=== PATIENT | female | born 1985 | race Caucasian/White ===

== ENCOUNTER 2016-11-11 23:00 | Emergency (ER) | payer OTHER ==
[2016-11-11] MEDS ORDERED: MORPHINE 10 MG/ML VIAL ONE ×2 (23:18→23:32)
[2016-11-11] MEDS ORDERED: ONDANSETRON 4 MG/2 ML VIAL IVP STA (23:18)
[2016-11-11] MEDS: MORPHINE 10 MG/ML VIAL IVP STA (23:33)
[2016-11-11] MEDS: SODIUM CHLORIDE 0.9% 1,000 ML IV ONE (23:34)
[2016-11-11 23:42] LABS: BASOPHILS # (AUTO) 0.1 10^3/uL (0.0-0.1); BASOPHILS % (AUTO) 0.6 %; EOSINOPHILS # (AUTO) 1.1 10^3/uL (0.0-0.7); EOSINOPHILS % (AUTO) 9.2 %; HCT - HEMATOCRIT 38.1 % (37.0-47.0); HGB - HEMOGLOBIN 12.7 g/dL (12.0-16.0); LYMPHOCYTES # (AUTO) 3.5 10^3/uL (1.5-3.5); LYMPHOCYTES % (AUTO) 29.6 %; MEAN CORPUSCULAR HEMOGLOBIN 27.3 pg (27.0-31.0); MEAN CORPUSCULAR HGB CONC 33.5 g/dL (32.0-36.0); MEAN CORPUSCULAR VOLUME 81.7 fL (81.0-99.0); MEAN PLATELET VOLUME 7.8 fL (7.9-10.8); MONOCYTES # (AUTO) 0.5 10^3/uL (0.0-1.0); MONOCYTES % (AUTO) 4.1 %; NEUTROPHILS # (AUTO) 6.6 10^3/uL (1.5-6.6); NEUTROPHILS % (AUTO) 56.5 %; RED BLOOD COUNT 4.66 10^6/uL (4.20-5.40); UNCORRECTED WHITE BLOOD COUNT 11.7 x10^3/uL; WHITE BLOOD COUNT 11.7 x10^3/uL (4.8-10.8)
[2016-11-11 23:55] LABS: BILIRUBIN,TOTAL 0.4 mg/dL (0.2-1.0); CALCIUM 9.1 mg/dL (8.5-10.3); CREATININE 0.7 mg/dL (0.4-1.0); POTASSIUM 3.4 mmol/L (3.5-5.0); TOTAL PROTEIN 6.5 g/dL (6.7-8.2)
[2016-11-12] MEDS ORDERED: IOPAMIDOL-300 100 ML VIAL ONE (00:08)
[2016-11-12] MEDS: IOPAMIDOL-300 100 ML VIAL IVP ONE (00:28)
[2016-11-12 00:58] LABS: BILIRUBIN,URINE NEGATIVE (NEGATIVE); UA CHARGE (STRIP ONLY) YES; UR CULTURE IF IND NOT INDICATED
[2016-11-12 01:01] LABS: HCG UR QUAL NEGATIVE
--- NOTE | 2016-11-12 01:05 | CT Preliminary Report ---
Exam: CT Abdomen/Pelvis W/ IMPRESSION: 1. Appendix appears normal. 2. Wall thickening and inflammatory change in the cecum and proximal ascending colon presumably repre senting a focal infectious or inflammatory process. Malignancy unlikely but not entirely excluded. 3. Hepatosplenomegaly with fatty liver. [facility] SITE ID: [id number]
--- NOTE | 2016-11-12 01:08 | CT Report ---
EXAM: CT ABDOMEN AND PELVIS EXAM DATE: 11/12/2016 12:33 AM. CLINICAL HISTORY: Right lower quadrant pain. COMPARISONS: CT report, 06/03/2009. TECHNIQUE: Routine helical CT imaging was performed through the abdomen and pelvis. IV contrast: Vanda onic. Enteric contrast: No. Reconstructions: Coronal and sagittal. In accordance with CT protocol optimization, one or more of the following dose reduction techniques w ere utilized for this exam: automated exposure control, adjustment of mA and/or KV based on patient s ize, or use of iterative reconstructive technique. FINDINGS: Lung Bases: Mild bibasilar atelectasis. Liver: Fatty infiltration. Gallbladder/Bile Ducts: Unremarkable. Spleen: Enlarged at 14.6 cm. Pancreas: Normal. Adrenal Glands: Normal. Kidneys: Normal. No masses or hydronephrosis. Peritoneal Cavity/Bowel: There may be some colonic diverticula but no diverticulitis is seen. Wall th ickening and inflammatory change in the cecum and proximal ascending colon. No bowel obstruction. No free air or free fluid. Normal-sized mesenteric lymph nodes. Appendix appears normal. Pelvic Organs: Normal. The bladder and visualized pelvic organs are within normal limits. Vasculature: No aneurysms or other significant abnormality. Bones: No significant abnormality. Other: None. IMPRESSION: 1. Appendix appears normal. 2. Wall thickening and inflammatory change in the cecum and proximal ascending colon presumably repre senting a focal infectious or inflammatory process. Malignancy unlikely but not entirely excluded. 3. Hepatosplenomegaly with fatty liver. [facility] Referring Provider Line: [phone] SITE ID: [id number]
--- NOTE | 2016-11-12 01:22 | ED Physician Documentation ---
PD HPI ABD PAIN - Stated complaint Stated Complaint: ABD PX/NAUSEA - Chief complaint Chief Complaint: Abd Pain - History obtained from History obtained from: Patient - History of Present Illness Timing - onset: How many days ago (2) Timing - details: Gradual onset, Still present Quality: Cramping, Aching Location: RLQ Worsened by: Eating, Moving, Position, Palpation Associated symptoms: Constipation. No: Fever, Nausea, Vomiting, Hematemesis, Diarrhea Similar symptoms before: Has not had sx before Recently seen: Not recently seen - Additional information Additional information: Patient is a 31 year old female with a history of depression and anxiety who is presenting to the emergency department for rlq pain. Patient states that the pain has been going on for about a day and is just getting progressively worse. Patient states that it is only in her right lower quadrant. Patient denies nausea, vomiting, diarrhea, fever, chills, dysuria, vaginal bleeding or vaginal discharge. Review of Systems Constitutional: denies: Fever, Chills Eyes: denies: Decreased vision, Photophobia Ears: denies: Ear pain, Drainage/discharge Nose: denies: Congestion Throat: denies: Oral lesions / sores, Sore throat Cardiac: denies: Chest pain / pressure, Palpitations Respiratory: denies: Cough, Wheezing GI: reports: Abdominal Pain, Constipation. denies: Nausea, Vomiting, Diarrhea : denies: Dysuria, Frequency, Discharge, Vaginal bleeding Skin: denies: Rash, Lesions Musculoskeletal: denies: Neck pain, Back pain, Extremity pain Neurologic: denies: Generalized weakness, Focal weakness, Numbness Psychiatric: reports: Depressed, Anxiety Immunocompromised: denies: Immunocompromised PD PAST MEDICAL HISTORY - Past Medical History Past Medical History: Yes GI: GERD - Past Surgical History Past Surgical History: No - Present Medications Home Medications: Ambulatory Orders Medication Instructions Recorded Confirmed Cetirizine [ZyrTEC] 1 tab PO DAILY 11/11/16 11/11/16 Duloxetine HCl [Cymbalta] 1 tab PO DAILY 11/11/16 11/11/16 Ethinyl Estradiol/Drospirenone 1 tab PO DAILY 11/11/16 11/11/16 [Ocella 3 mg-0.03 mg Tablet] Omeprazole 1 tab PO DAILY 11/11/16 11/11/16 Tizanidine HCl [Zanaflex] 1 tab PO PRN PRN 11/11/16 11/11/16 Trazodone HCl 1 tab PO DAILY 11/11/16 11/11/16 Ciprofloxacin HCl [Cipro] 500 mg PO BID #14 tablet 11/12/16 Metronidazole [Flagyl] 500 mg PO TID #21 tablet 11/12/16 - Allergies Allergies/Adverse Reactions: Allergies Allergy/AdvReac Type Severity Reaction Status Date / Time acetaminophen [From Vicodin] Allergy Itching Verified 11/11/16 23:11 hydrocodone [From Vicodin] Allergy Itching Verified 11/11/16 23:11 venlafaxine [From Effexor] Allergy Rash Verified 11/11/16 23:11 - Social History Does the pt smoke?: No Smoking Status: Never smoker PD ED PE NORMAL - Vitals Vital signs reviewed: Yes - General General: Alert and oriented X 3, No acute distress - HEENT HEENT: Atraumatic, PERRL, Pharynx benign - Neck Neck: Supple, no meningeal sign, No JVD - Cardiac Cardiac: RRR, No murmur - Respiratory Respiratory: No respiratory distress, Clear bilaterally - Abdomen Abdomen: Non distended - Derm Derm: Normal color, Warm and dry, No rash - Extremities Extremities: No deformity, No calf tenderness / cord - Neuro Neuro: Alert and oriented X 3, No motor deficit, No sensory deficit, Normal speech - Psych Psych: Normal mood, Normal affect PD ED PE EXPANDED - HEENT HEENT: Dry mucous membranes - Abdomen Abdomen: Tender to palpation, RLQ Results - Vitals Vitals: Vital Signs - 24 hr 11/11/16 11/12/16 23:09 00:54 Temperature 36 C L Heart Rate 119 H 102 H Respiratory 20 18 Rate Blood Pressure 178/90 H 159/72 H O2 Saturation 98 99 Oxygen O2 Source Room air - Labs Labs: Laboratory Tests 11/11/16 11/11/16 11/12/16 23:25 23:25 00:52 WBC 11.7 H RBC 4.66 Hgb 12.7 Hct 38.1 MCV 81.7 MCH 27.3 MCHC 33.5 RDW 14.0 Plt Count 335 MPV 7.8 L Neut # 6.6 Lymph # 3.5 [place] # 0.5 Eos # 1.1 H Baso # 0.1 Absolute Nucleated RBC 0.00 Nucleated RBC % 0.0 Sodium 137 Potassium 3.4 L Chloride 104 Carbon Dioxide 23 Anion Gap 10.0 BUN 11 Creatinine 0.7 Estimated GFR (MDRD) 96 Glucose 129 H Calcium 9.1 Total Bilirubin 0.4 AST 17 ALT 17 Alkaline Phosphatase 70 Total Protein 6.5 L Albumin 3.3 Globulin 3.2 Albumin/Globulin Ratio 1.0 Lipase 22 Urine Color YELLOW Urine Clarity CLEAR Urine pH 6.0 Ur Specific [place] <=1.005 Urine Protein NEGATIVE Urine Glucose (UA) NEGATIVE Urine Ketones NEGATIVE Urine Occult Blood NEGATIVE Urine Nitrite NEGATIVE Urine Bilirubin NEGATIVE Urine Urobilinogen 0.2 (NORMAL) Ur Leukocyte Esterase NEGATIVE Ur Microscopic Review NOT INDICATED Urine Culture Comments NOT INDICATED Urine HCG, Qual NEGATIVE - Rads (name of study) ct abdomen and pelvis Radiology: Final report received (normal appendix, colitis), See rad report PD MEDICAL DECISION MAKING - ED course Complexity details: reviewed old records, reviewed results, re-evaluated patient , considered differential, d/w patient, d/w family ED course: Patient was seen and examined at bedside. IV access was gained and labs were drawn. patient was treated with IV fluids and morphine for pain. imaging was ordered. when patient's labs came back she was sent for imaging. Patient was found to make mild colitis and a large stool burden. Patient's symptoms were less likely to be infectious in nature, but patient was given detailed discharge and follow up instructions, including surgical follow up. Patient required no further work up at this time and was stable for discharge with outpatient follow up. Departure - Departure Disposition: 01 Home, Self Care Clinical Impression: Colitis Condition: Good Instructions: ED Gastroenteritis Non Infec Follow-Up: Emmanuel Christiansen MD [Provider Admit Priv/Credential] - Within 1 week Prescriptions: Ciprofloxacin HCl [Cipro] 500 mg PO BID #14 tablet Metronidazole [Flagyl] 500 mg PO TID #21 tablet Comments: Your diagnostics today revealed some colitis, which is just inflammation of your lia. It could be infections in nature but less likely. If you develop fevers, and chills, you can start antibiotics but should not be necessary. You were also found to be constipated with a large stool burden. It could be a side effect of your medication. You will need to increase the amount of fluid intake, and take a daily fiber supplement. You should follow up with Dr. Christiansen for an eventual colonoscopy to rule out malignancy if symptoms persist or become frequent. You may return to the emergency department at any time for new, worsening or uncontrollable symptoms.
[2016-11-12 01:40] VITALS: BP 114/60
== END 2016-11-12 01:40 | disposition home or self-care (01) ==
LOC: ED 23:00
DX: K52.9 Noninfective gastroenteritis and colitis, unspecified (principal)
CPT/HCPCS: 36415; 74177; 80053; 81001; 81003; 81025; 83690; 85025; 87086; 96361; 96374; 99283; 99284

== ENCOUNTER 2016-11-20 11:50 | Outpatient (CLI) | payer OTHER | END 2016-11-20 11:51 | disposition short-term general hospital (02) | LOC: EMS 11:50 | PROVIDERS: ATTEND Surgery | DX: M79.602 Pain in left arm (principal); M79.89 Other specified soft tissue disorders ==

== ENCOUNTER 2017-01-17 15:52 | Emergency (ER) | payer OTHER ==
--- NOTE | 2017-01-17 16:22 | ED Physician Documentation ---
History of Present Illness - Stated complaint Stated Complaint: R HAND PX - Chief complaint Chief Complaint: Ext Problem - History obtained from History obtained from: Patient - History of Present Illness Timing: How many weeks ago (1) - Additonal information Additional information: 31-year-old female with an ASD has developed another extremity clot. She has had a prior clot to the left upper extremity and was placed on Pradaxa. This eventually resolved and while she was on Pradaxa she developed this second clot this time to the right hand. She awoke on Wednesday morning with symptoms she was evaluated and treated at [facility] in [place] he was discharged from the hospital on Wednesday. Previously she had been given Dilaudid for pain control and this is very painful. She was not given pain medications when she was discharged from the hospital and she has been unable to sleep. She did call her vascular surgeon and the recommended she come to the emergency department as they are not able to phone in a prescription for pain medication. Review of Systems Constitutional: denies: Fever, Chills, Myalgias Eyes: denies: Decreased vision Ears: denies: Ear pain Nose: denies: Congestion Throat: denies: Sore throat Cardiac: denies: Chest pain / pressure, Palpitations Respiratory: denies: Dyspnea, Cough GI: denies: Abdominal Pain, Nausea, Vomiting, Constipation, Diarrhea : denies: Dysuria, Frequency Musculoskeletal: reports: Extremity pain Neurologic: denies: Generalized weakness, Focal weakness, Numbness PD PAST MEDICAL HISTORY - Past Medical History Past Medical History: Yes GI: GERD Psych: Depression Other Past Medical History: Blood clots to hands - Past Surgical History Past Surgical History: No - Present Medications Home Medications: Ambulatory Orders Medication Instructions Recorded Confirmed Cetirizine [ZyrTEC] 1 tab PO DAILY 11/11/16 01/17/17 Duloxetine HCl [Cymbalta] 1 tab PO DAILY 11/11/16 11/11/16 Ethinyl Estradiol/Drospirenone 1 tab PO DAILY 11/11/16 11/11/16 [Ocella 3 mg-0.03 mg Tablet] Omeprazole 1 tab PO DAILY 11/11/16 01/17/17 Trazodone HCl 1 tab PO DAILY 11/11/16 11/11/16 Hydromorphone HCl [Dilaudid] 4 - 8 mg PO Q4HR PRN #20 tablet 01/17/17 - Allergies Allergies/Adverse Reactions: Allergies Allergy/AdvReac Type Severity Reaction Status Date / Time acetaminophen [From Vicodin] Allergy Itching Verified 01/17/17 15:58 hydrocodone [From Vicodin] Allergy Itching Verified 01/17/17 15:58 venlafaxine [From Effexor] Allergy Rash Verified 01/17/17 15:58 - Social History Does the pt smoke?: No Smoking Status: Never smoker Does the pt drink ETOH?: No Does the pt have substance abuse?: No Substance Use and Type: Marijuana - Immunizations Immunizations are current?: Yes - POLST Patient has POLST: No PD ED PE NORMAL - Vitals Vital signs reviewed: Yes (Tachycardia and hypertension) - General General: No acute distress, Well developed/nourished - HEENT HEENT: Atraumatic, PERRL, EOMI - Respiratory Respiratory: No respiratory distress - Derm Derm: Normal color, Warm and dry, No rash - Extremities Extremities: No deformity, Other (There is ecchymosis to the fingertips on the right hand to the thumb index middle and fourth fingers distally there are skin changes consistent with ischemic changes resulting in dryness to the fingertips. ) - Neuro Neuro: No motor deficit, No sensory deficit Eye Opening: Spontaneous Motor: Obeys Commands Verbal: Oriented GCS Score: 15 - Psych Psych: Normal mood, Normal affect Results - Vitals Vitals: Vital Signs - 24 hr 01/17/17 15:53 Temperature 36.7 C Heart Rate 118 H Respiratory 18 Rate Blood Pressure 133/78 H O2 Saturation 100 Oxygen O2 Source Room air PD MEDICAL DECISION MAKING - ED course Complexity details: considered differential, d/w patient ED course: 31-year-old female with arterial clot to the right hand with continued pain associated with this episode. She does not have access to pain medication we will provide some pain medication for her for the next several days. Departure - Departure Disposition: 01 Home, Self Care Clinical Impression: Ischemia of digits of hand Condition: Stable Instructions: Ischemia Critical Limb Follow-Up: Your, doctor [Other] Prescriptions: Hydromorphone HCl [Dilaudid] 4 - 8 mg PO Q4HR PRN #20 tablet PRN Reason: Pain
[2017-01-17 16:41] VITALS: BP 130/74
== END 2017-01-17 16:37 | disposition home or self-care (01) ==
LOC: ED 15:52
DX: I99.8 Other disorder of circulatory system (principal); Z86.718 Personal history of other venous thrombosis and embolism; Z79.01 Long term (current) use of anticoagulants
CPT/HCPCS: 99283

== ENCOUNTER 2017-01-28 16:52 | Inpatient (IN) | payer OTHER, MEDICAID ==
[2017-01-28 17:37] LABS: RAPID STREP SCREEN REAGENT QC YELLOW (YELLOW)
[2017-01-28] MEDS ORDERED: SODIUM CHLORIDE 0.9% 1,000 ML IV ONE ×3 (18:03→20:18)
[2017-01-28 18:18] LABS: BASOPHILS # (AUTO) 0.1 10^3/uL (0.0-0.1); BASOPHILS % (AUTO) 1.2 %; EOSINOPHILS # (AUTO) 0.4 10^3/uL (0.0-0.7); EOSINOPHILS % (AUTO) 4.4 %; HCT - HEMATOCRIT 39.2 % (37.0-47.0); HGB - HEMOGLOBIN 12.9 g/dL (12.0-16.0); LYMPHOCYTES # (AUTO) 2.4 10^3/uL (1.5-3.5); LYMPHOCYTES % (AUTO) 26.1 %; MEAN CORPUSCULAR HEMOGLOBIN 26.4 pg (27.0-31.0); MEAN CORPUSCULAR HGB CONC 32.9 g/dL (32.0-36.0); MEAN CORPUSCULAR VOLUME 80.4 fL (81.0-99.0); MEAN PLATELET VOLUME 7.4 fL (7.9-10.8); MONOCYTES # (AUTO) 0.6 10^3/uL (0.0-1.0); MONOCYTES % (AUTO) 6.5 %; NEUTROPHILS # (AUTO) 5.7 10^3/uL (1.5-6.6); NEUTROPHILS % (AUTO) 61.8 %; RED BLOOD COUNT 4.88 10^6/uL (4.20-5.40); RED CELL DISTRIBUTION WIDTH 14.3 % (12.0-15.0); UNCORRECTED WHITE BLOOD COUNT 9.3 x10^3/uL; WHITE BLOOD COUNT 9.3 x10^3/uL (4.8-10.8)
[2017-01-28 18:22] LABS: INR 1.1 (0.8-1.2); PT - PROTHROMBIN TIME 12.1 secs (9.9-12.6)
[2017-01-28 18:30] LABS: PARTIAL THROMBOPLASTIN TIME 28.8 secs (24.9-33.3)
[2017-01-28 18:37] LABS: BILIRUBIN,TOTAL 0.8 mg/dL (0.2-1.0); CALCIUM 9.3 mg/dL (8.5-10.3); CREATININE 0.5 mg/dL (0.4-1.0); POTASSIUM 3.8 mmol/L (3.5-5.0); TOTAL PROTEIN 7.5 g/dL (6.7-8.2)
--- NOTE | 2017-01-28 19:00 | ED Physician Documentation ---
History of Present Illness - Stated complaint Stated Complaint: RASH - Chief complaint Chief Complaint: Wound - Additonal information Additional information: hx from pt 31 female presents to ER CC fairly abrupt onset myalgias fatiigue and rash to extremities no sore throat or oral lesions no documented fever no RUFFIN or neck stiffness no travel out of [place] state no tick bites no new meds - most recent is pradax and that is X several weeks pt states she was admitted to [facility] [place] several weeks ago for blood clots in her hands due to a hole in her heart and had an angiogram and was started on pradaxa I obtained records from [facility] and records state she is an IVDA and has been crushing dilaudid pills and injecting them for approx 2 months and presented to the there with right hand pain and was found to have emboli/ischmeia but not requiring intervention (hx L hand thrombus as well), angio howed digit ischemia, she had a TTE 01/12 concern for endocarditis and no mass or vegetation found, by hx has patent foramen ovale, she was dced to detox, surely blood cx were done but no results in paperwork from [facility] Review of Systems Constitutional: reports: Myalgias. denies: Fever Cardiac: denies: Chest pain / pressure Respiratory: denies: Dyspnea, Cough GI: denies: Abdominal Pain Skin: reports: Rash Musculoskeletal: denies: Neck pain Neurologic: denies: Headache Endocrine: denies: Easy bruising / bleeding Immunocompromised: denies: Immunocompromised PD PAST MEDICAL HISTORY - Past Medical History Past Medical History: Yes Cardiovascular: Other GI: GERD Psych: Depression Other Past Medical History: Bilat upper extremity thrombosis - Past Surgical History Past Surgical History: No Cardiovascular: Other - Present Medications Home Medications: Ambulatory Orders Medication Instructions Recorded Confirmed Cetirizine [ZyrTEC] 1 tab PO DAILY 11/11/16 01/28/17 Duloxetine HCl [Cymbalta] 1 tab PO DAILY 11/11/16 01/28/17 Ethinyl Estradiol/Drospirenone 1 tab PO DAILY 11/11/16 01/28/17 [Ocella 3 mg-0.03 mg Tablet] Omeprazole 1 tab PO DAILY 11/11/16 01/28/17 Trazodone HCl 1 tab PO DAILY 11/11/16 01/28/17 Dabigatran Etexilate Mesylate 150 mg PO BID 01/28/17 01/28/17 [Pradaxa] - Allergies Allergies/Adverse Reactions: Allergies Allergy/AdvReac Type Severity Reaction Status Date / Time acetaminophen [From Vicodin] Allergy Itching Verified 01/28/17 17:00 hydrocodone [From Vicodin] Allergy Itching Verified 01/28/17 17:00 venlafaxine [From Effexor] Allergy Rash Verified 01/28/17 17:00 - Social History Does the pt smoke?: No Smoking Status: Never smoker Does the pt drink ETOH?: No Does the pt have substance abuse?: No - Immunizations Immunizations are current?: Yes - POLST Patient has POLST: No PD ED PE NORMAL - Vitals Vital signs reviewed: Yes - General General: Other (ill appearing) - HEENT HEENT: PERRL (8) - Neck Neck: Supple, no meningeal sign - Cardiac Cardiac: RRR, No murmur - Respiratory Respiratory: No respiratory distress, Clear bilaterally - Abdomen Abdomen: Non tender - Derm Derm: Other (rash pred to hand and arm, less so to feet, on dorsum of hands arms and leg the rash is firm pink small hard papules approx 2 mm in size with surrounding pallor and some are coalescing in macules no vesicles, no ever pustules, no target lesions, no petecchiae or purpura, to palms of hands pt has discolored slightly raised macules could be [place] lesions, no splinter hemorrhages or osler nodes seen). No: Normal color - Neuro Neuro: Alert and oriented X 3 Results - Vitals Vitals: Vital Signs - 24 hr 01/28/17 01/28/17 16:55 20:32 Temperature 36.1 C L 36.4 C L Heart Rate 100 95 Respiratory 16 18 Rate Blood Pressure 133/88 H 147/90 H O2 Saturation 100 99 Oxygen O2 Source Room air - Labs Labs: Microbiology 01/28/17 17:22 Group A Strep Throat Culture - Preliminary Throat CULTURE IN PROGRESS. RESULTS TO FOLLOW. Laboratory Tests 01/28/17 01/28/17 01/28/17 17:22 18:05 18:05 WBC 9.3 RBC 4.88 Hgb 12.9 Hct 39.2 MCV 80.4 L MCH 26.4 L MCHC 32.9 RDW 14.3 Plt Count 350 MPV 7.4 L Neut # 5.7 Lymph # 2.4 [place] # 0.6 Eos # 0.4 Baso # 0.1 Absolute Nucleated RBC 0.00 Nucleated RBC % 0.0 ESR PT INR APTT Sodium 136 Potassium 3.8 Chloride 106 Carbon Dioxide 20 L Anion Gap 10.0 BUN 11 Creatinine 0.5 Estimated GFR (MDRD) 142 Glucose 89 Lactic Acid Calcium 9.3 Total Bilirubin 0.8 AST 17 ALT 24 Alkaline Phosphatase 67 C-Reactive Protein 1.8 H Total Protein 7.5 Albumin 3.8 Globulin 3.7 Albumin/Globulin Ratio 1.0 Lipase 20 L Serum HCG, Qual Group A Strep Rapid Negative 01/28/17 01/28/17 01/28/17 18:05 18:05 18:05 WBC RBC Hgb Hct MCV MCH MCHC RDW Plt Count MPV Neut # Lymph # [place] # Eos # Baso # Absolute Nucleated RBC Nucleated RBC % ESR 27 H PT 12.1 INR 1.1 APTT 28.8 Sodium Potassium Chloride Carbon Dioxide Anion Gap BUN Creatinine Estimated GFR (MDRD) Glucose Lactic Acid 0.6 Calcium Total Bilirubin AST ALT Alkaline Phosphatase C-Reactive Protein Total Protein Albumin Globulin Albumin/Globulin Ratio Lipase Serum HCG, Qual Group A Strep Rapid 01/28/17 18:05 WBC RBC Hgb Hct MCV MCH MCHC RDW Plt Count MPV Neut # Lymph # [place] # Eos # Baso # Absolute Nucleated RBC Nucleated RBC % ESR PT INR APTT Sodium Potassium Chloride Carbon Dioxide Anion Gap BUN Creatinine Estimated GFR (MDRD) Glucose Lactic Acid Calcium Total Bilirubin AST ALT Alkaline Phosphatase C-Reactive Protein Total Protein Albumin Globulin Albumin/Globulin Ratio Lipase Serum HCG, Qual NEGATIVE Group A Strep Rapid PD MEDICAL DECISION MAKING - ED course ED course: IVDA recent embolic events concerning for endocarditis though TTE at that time neg now presenting with myalgia and rash concerning for endocarditis (specifically palm lesions) afebrile, nl WBC, but elev CRP and ESR blood cx drawn IV access difficult but anesthesia able to establish a foot IV, gave karthik garcia after blood cx, will admit for IV ab pending cx results and echo called hospitalist at 730 pt declined HIV testing pt has been grinding up dilaudid pills and injecting them so an inflammatory FB chemical response could be going on as well pt gave me permission to follow her course of care through admission pt would like her family not to know of her IVDA dx should be "rule out endocarditis" but that is not an option in EMR Departure - Departure Disposition: 66 [facility] DC/Xfer Clinical Impression: Rash, IV drug abuse Endocarditis Qualifiers: Endocarditis type: infective Infective endocarditis organism: unspecified organism Chronicity: acute Qualified Code(s): I33.0 - Acute and subacute infective endocarditis Condition: Good Discharge Date/Time: 01/28/17 21:36
[2017-01-28] MEDS ORDERED: LIDOCAINE 1% 2 ML VIAL ONE (20:02)
[2017-01-28] MEDS ORDERED: LIDOCAINE 1% 2 ML VIAL SUBQ STA (20:13)
[2017-01-28] MEDS ORDERED: PIPERACILLIN/TAZOBACTAM 3.375 GM in SODIUM CHLORIDE 0.9% MINIBAG 100 ML IV STA (20:18)
[2017-01-28] MEDS ORDERED: VANCOMYCIN INJ 1 GM in SODIUM CHLORIDE 0.9% 250 ML IV STA (20:18)
[2017-01-28] MEDS ORDERED: LORazepam 0.5 MG TABLET PO STA (20:18)
[2017-01-28] MEDS ORDERED: IBUPROFEN 600 MG TABLET PO PRN (20:51)
--- NOTE | 2017-01-28 21:06 | HISTORY & PHYSICAL EXAMINATION ---
Chief Complaint - Chief Complaint Chief Complaint: Myalgia and rashes with palmar lesions History of Present Illness - Admitted From Admitted From:: Home - History of Present Illness HPI Comment/Other: Ms. Rut Bland is a 31-year-old white female with a history IV drug use which includes grinding up Dilaudid pills and injecting them.Today the patient began to experience myalgias and rash fairly suddenly she also has developed lesions to her palms and the soles of her feet consistent with Janeway lesions. She has been afebrile. She had been worked up a few weeks ago and another hospital and had a transthoracic echocardiogram done which failed to show any lesions. She did not have any blood cultures done at that time.She presented to the emergency department at [facility] and will be admitted for an endocarditis workup.We will also treat her with IV fluids and IV antibiotics , specifically Zosyn and vancomycin. History - Past Medical History Cardiovascular: reports: Other GI: reports: GERD Psych: reports: Depression, Anxiety MRSA Hx?: Yes Other Past Medical History: Bilat upper extremity thrombosis - Past Surgical History Cardiovascular: reports: Other HEENT: reports: Other (Upper palate and uvula reduction surgery) - Family & Social History Family History: Mother: Alive and Well (Mother has history of migraines and fibromyalgia), Father: Alive and Well, CAD (CHF), COPD/Emphysema, Diabetes, Type 2, Sister: Alive and Well, Brother: Alive and Well Living arrangement: At home Living Situation: Alone - Substance History Abuse: Recurrent use of substance despite neg consequences: Opioid Abuse Issues: Other (Possible endocarditis Secondary to injecting ground-up Dilaudid) Dependence: Experiences withdrawal or developed tolerances: NONE - POLST Patient has POLST: No POLST Status: Full Code Meds/Allgy - Home Medications Home Medications: Ambulatory Orders Medication Instructions Recorded Confirmed Cetirizine [ZyrTEC] 1 tab PO DAILY 11/11/16 01/28/17 Duloxetine HCl [Cymbalta] 1 tab PO DAILY 11/11/16 01/28/17 Ethinyl Estradiol/Drospirenone 1 tab PO DAILY 11/11/16 01/28/17 [Ocella 3 mg-0.03 mg Tablet] Omeprazole 1 tab PO DAILY 11/11/16 01/28/17 Trazodone HCl 1 tab PO DAILY 11/11/16 01/28/17 Dabigatran Etexilate Mesylate 150 mg PO BID 01/28/17 01/28/17 [Pradaxa] - Allergies Allergies/Adverse Reactions: Allergies Allergy/AdvReac Type Severity Reaction Status Date / Time acetaminophen [From Vicodin] Allergy Itching Verified 01/28/17 17:00 hydrocodone [From Vicodin] Allergy Itching Verified 01/28/17 17:00 venlafaxine [From Effexor] Allergy Rash Verified 01/28/17 17:00 Review of Systems - Constitutional Constitutional: reports: Fatigue. denies: Fever, Chills, Weakness, Night sweats - Eyes Eyes: denies: Pain, Irritation, Blurred vision - Ears, Nose & Throat Ears, Nose & Throat: denies: Ear pain, Hearing loss, Hearing aids, Tinnitus - Cardiovascular Cariovascular: denies: Irregular heart rate, Palpitations, Chest pain, Edema - Respiratory Respiratory: denies: Cough, Sputum production, Wheezing, Snoring - Gastrointestinal Gastrointestinal: denies: Abdominal pain, Abdominal distention, Constipation, Diarrhea, Change in bowel habits - Genitourinary Genitourinary: denies: Dysuria, Frequency, Urgency, Hematuria - Musculoskeletal Musculoskeletal: reports: Muscle pain, Muscle aches. denies: Stiffness, Joint swelling - Integumentary Integumentary: reports: Rash, Lesions. denies: Nail changes - Neurological Neurological: denies: General weakness, Focal weakness, Headache, Dizziness, Memory problems - Psychiatric Psychiatric: reports: Depression, Anxiety. denies: Suicidal, Hallucinations - Endocrine Endocrine: denies: Polyuria, Polydypsia, Polyphagia - Hematologic/Lymphatic Hematologic/Lymphatic: reports: Other (Possible Janeway lesions to the soles of the feet and palms of the hand). denies: Anemia, Bruising, Petechiae - All Other Systems All Other Systems: reports: Reviewed and negative Exam - Vital Signs Reviewed Vital Signs: Yes Vital Signs: Vital Signs x48h Temp Pulse Resp BP Pulse Ox 01/28/17 20:32 36.4 C L 95 18 147/90 H 99 01/28/17 16:55 36.1 C L 100 16 133/88 H 100 - Physical Exam General Appearance: positive: No acute distress, Alert, Anxious. negative: Lethargic Eyes Bilateral: positive: Normal inspection, PERRL, EOMI. negative: No lid inflammation ENT: positive: ENT inspection nml, Pharynx nml, No signs of dehydration. negative: Purulent nasal drainage Neck: positive: Nml inspection, Thyroid nml, No JVD, Trachea midline. negative : Thyromegaly Respiratory: positive: Chest non-tender, No respiratory distress, Breath sounds nml. negative: Wheezes, Rales, Rhonchi Cardiovascular: positive: Regular rate & rhythm, No murmur, No gallop. negative : Systolic murmur, Diastolic murmur Peripheral Pulses: positive: 1+ Abdomen: positive: Non-tender, No organomegaly, Nml bowel sounds, No distention. negative: Guarding, Rebound Back: positive: Nml inspection. negative: CVA tenderness (R), CVA tenderness (L ) Skin: positive: Color nml, Warm, Dry, Skin rash. negative: Cyanosis Extremities: positive: Non-tender, Full ROM, Nml appearance Neurologic/Psychiatric: positive: Oriented x3, CN's nml (2-12), Motor nml, Sensation nml, Mood/affect nml Conclusion/Plan - Problem List (1) IV drug abuse Conclusion/Plan: The patient has an admitted history of grinding of Dilaudid pills and injecting them IV. This of course puts her at high risk for septicemia and subsequent endocarditis. The patient appears to have Janeway lesions to the soles of her feet and palms of her hands. We will therefore do 2 sets of blood cultures and start the patient on IV antibiotics (2) Rash Conclusion/Plan: Unsure of etiology, possible infective endocarditis. Awaiting results of blood cultures. This may also be a simple viral syndrome. - Lab Results Lab results reviewed: Yes Fish Bones: 01/28/17 18:05 01/28/17 18:05 Issues/Core Measures - Anticipated LOS Anticipated Stay Length: 2 or more midnights - [facility] Requirement for [facility] I expect patient to be DC'd or transferred within 96 hours.: Yes - DVT/VTE - Prophylaxis VTE/DVT Device ordered at admit?: Yes
[2017-01-28] MEDS: SODIUM CHLORIDE FLUSH 0.9% 10 ML SYRINGE IVP SCH (21:46)
[2017-01-28 22:19] LABS: BILIRUBIN,URINE NEGATIVE (NEGATIVE)
[2017-01-28 22:21] LABS: HCG UR QUAL NEGATIVE; UA CHARGE (STRIP ONLY) YES; UR CULTURE IF IND NOT INDICATED
[2017-01-28] MEDS: SODIUM CHLORIDE FLUSH 0.9% 10 ML SYRINGE IVP PRN ×2 (23:11→23:56)
[2017-01-28] MEDS: MORPHINE 2 MG/ML SYRINGE IVP PRN (23:11)
[2017-01-28] MEDS: diphenhydrAMINE INJ 50 MG/ML VIAL IVP PRN (23:55)
[2017-01-29] MEDS ORDERED: CALCIUM CARBONATE CHEW 500 MG TABLET PO PRN (01:20)
[2017-01-29] MEDS: SODIUM CHLORIDE FLUSH 0.9% 10 ML SYRINGE IVP PRN ×7 (02:11→20:12)
[2017-01-29] MEDS: MORPHINE 2 MG/ML SYRINGE IVP PRN ×3 (02:11→08:12)
[2017-01-29] MEDS ORDERED: VANCOMYCIN PER PHARMACY 0.000001 GM in SODIUM CHLORIDE 0.9% 250 ML IV PRN (06:00)
[2017-01-29] MEDS: diphenhydrAMINE INJ 50 MG/ML VIAL IVP PRN ×3 (06:14→18:44)
[2017-01-29] MEDS: PANTOPRAZOLE 40 MG TABLET PO SCH (06:15)
[2017-01-29] MEDS: SODIUM CHLORIDE FLUSH 0.9% 10 ML SYRINGE IVP SCH ×3 (06:15→20:12)
[2017-01-29] MEDS: VANCOMYCIN INJ 1 GM in SODIUM CHLORIDE 0.9% 250 ML IV SCH ×2 (08:38→16:13)
[2017-01-29] MEDS: POLYETHYLENE GLYCOL 3350 17 GM PACKET PO SCH (10:17)
[2017-01-29] MEDS: DABIGATRAN 75 MG CAPSULE PO SCH ×2 (11:17→20:12)
[2017-01-29] MEDS: DROSPIRENONE PO SCH (11:17)
[2017-01-29] MEDS: ETHINYL ESTRADIOL PO SCH (11:17)
[2017-01-29] MEDS: HYDROmorphone 1 MG/ML SYRINGE IVP PRN ×5 (11:44→20:12)
[2017-01-29] MEDS: CETIRIZINE 10 MG TABLET PO SCH (11:53)
--- NOTE | 2017-01-29 17:52 | PROVIDER PROGRESS NOTE ---
Assessment/Plan - Problem List (1) Rash Assessment/Plan: Possible rash of endocarditis vs skin changes from thromboemboli I will review the recent W/U regarding thrombi and choice of anticoagulant ( Pradaxa is not normally prescribed for treatment of thrombi). I will review the [facility] summary as to any blood cultures done or Echo results. We will obtain an Echo here, with bubble study to evaluate size of PFO. The Echo Prelim. report did not show any vegetations and the "bubble" portion was too weak to see a PFO (since the saline injection was very far from the right atrium, in a tiny foot iv. (2) Ischemia of digits of hand Assessment/Plan: zContinue management with anticoagulant chosen at [facility]. I will request records from 08/24, when the first arterial angio was done, for results and to determine why Pradaxa was chosen (mostly Pradaxa is used for DVT and PE treatment and embolic stroke prevention, not for arterial thrombus treatment). (3) IV drug abuse Assessment/Plan: The patient verbalized to me that she "is done with iv drug use". Watch for withdrawal. (4) PFO (patent foramen ovale) Assessment/Plan: We will obtain an Echo here, with bubble study to evaluate size of PFO. Today's Echo Prelim. report did not show any vegetations and the "bubble" portion was too weak to see a PFO (since the saline injection was very far from the right atrium, in a tiny foot iv. I will request the Echo done at [facility] in 08/24 for this info (5) Myalgia Assessment/Plan: Pt wants Dilaudid for aches and pains, not Morphine which is giving her nausea. - Current Meds Current Meds: Current Medications Generic Name Dose Route Start Last Admin Trade Name Freq PRN Reason Stop Dose Admin Cetirizine HCl 10 mg 01/29/17 09:00 01/29/17 11:53 Zyrtec PO 10 mg DAILY IVAN Administration Dabigatran 150 mg 01/29/17 09:00 01/29/17 11:17 Pradaxa PO Not Given BID IVAN Diphenhydramine HCl 37.5 mg 01/29/17 11:38 01/29/17 11:52 Benadryl Inj IVP 37.5 mg Q6H PRN Administration Allergy Symptoms Hydromorphone HCl 1 mg 12/22/17 11:36 01/29/17 16:13 Dilaudid Inj Syringe IVP 1 mg Q2H PRN Administration PAIN Vancomycin HCl 1 gm/ Sodium 250 mls @ 150 mls/hr 01/29/17 08:00 01/29/17 16: 13 Chloride IV 250 mls/hr Q8H IVAN Administration Non-Formulary Medication 1 tab 01/29/17 09:00 01/29/17 11:17 Ethinyl Estradiol/Drospirenone [Ocella 3 Mg-0.03 Mg Tablet] PO Not Given DAILY IVAN Pantoprazole Sodium 40 mg 01/29/17 07:00 01/29/17 06:15 Protonix PO 40 mg QDAC IVAN Administration Polyethylene Glycol 17 gm 01/29/17 09:00 01/29/17 10:17 Miralax PO Not Given DAILY IVAN Sodium Chloride 10 ml 01/28/17 20:51 01/29/17 16:13 Normal Saline Flush 0.9% IVP 10 ml PRN PRN Administration NEEDED PER PROVIDER ORDERS Sodium Chloride 10 ml 01/28/17 22:00 01/29/17 14:06 Normal Saline Flush 0.9% IVP 10 ml Q8HR IVAN Administration - Lab Result Fish Bone Diagrams: 01/28/17 18:05 01/28/17 18:05 - Additional Planning My Orders: My Active Orders 01/29/17 08:00 Echo Complete w/Bubble Study [ECHO] Routine 01/29/17 11:36 HYDROmorphone INJ SYRINGE [Dilaudid Inj Syringe] 1 mg IVP Q2H PRN 01/29/17 11:38 diphenhydrAMINE INJ [Benadryl Inj] 37.5 mg IVP Q6H PRN Subjective - Subjective Patient Reports: Other (Finger rash feels better Back and neck feel tight Morphine causing nausea) Nursing Reports: Other (as above) Objective Vital Signs: Vital Signs - 24 hr 01/28/17 01/29/17 01/29/17 22:00 00:06 04:29 Temperature 37 C 37.2 C 37.1 C Heart Rate [ 88 Brachial] Heart Rate [ Monitoring electrodes] Heart Rate [ 87 77 Radial] Respiratory 16 17 18 Rate Blood Pressure [Left Brachial artery] Blood Pressure 118/76 [Right Brachial artery] Blood Pressure 126/75 142/84 H [Right Radial artery] O2 Saturation 96 97 98 01/29/17 01/29/17 01/29/17 10:09 15:33 17:36 Temperature 37.0 C 37.3 C 37.3 C Heart Rate [ 75 80 Brachial] Heart Rate [ 83 Monitoring electrodes] Heart Rate [ Radial] Respiratory 18 16 23 Rate Blood Pressure 124/84 H [Left Brachial artery] Blood Pressure 135/91 H 122/77 [Right Brachial artery] Blood Pressure [Right Radial artery] O2 Saturation 99 95 96 Oxygen O2 Source Room air I&O (Last 24 Hrs): Intake and Output Totals x24h 01/27/17 01/28/17 01/29/17 23:59 23:59 23:59 Intake Total 1350 1050 Output Total 50 Balance 1300 1050 General: Alert HEENT: Mucous membr. moist/pink Neck: Supple Neuro: Oriented Times 3 Cardiovascular: Regular rate, Other (1/6 systolic murmur at base) Abdomen: Soft Extremities: No edema, Other (minimal maculopapular rash of hands and dorsum of R foot) - Results Results: Laboratory Results WBC 9.3 x10^3/uL (4.8-10.8) 01/28/17 18:05 RBC 4.88 10^6/uL (4.20-5.40) 01/28/17 18:05 Hgb 12.9 g/dL (12.0-16.0) 01/28/17 18:05 Hct 39.2 % (37.0-47.0) 01/28/17 18:05 MCV 80.4 fL (81.0-99.0) L 01/28/17 18:05 MCH 26.4 pg (27.0-31.0) L 01/28/17 18:05 MCHC 32.9 g/dL (32.0-36.0) 01/28/17 18:05 RDW 14.3 % (12.0-15.0) 01/28/17 18:05 Plt Count 350 10^3/uL (130-450) 01/28/17 18:05 MPV 7.4 fL (7.9-10.8) L 01/28/17 18:05 Neut # 5.7 10^3/uL (1.5-6.6) 01/28/17 18:05 Lymph # 2.4 10^3/uL (1.5-3.5) 01/28/17 18:05 Hutchinson # 0.6 10^3/uL (0.0-1.0) 01/28/17 18:05 Eos # 0.4 10^3/uL (0.0-0.7) 01/28/17 18:05 Baso # 0.1 10^3/uL (0.0-0.1) 01/28/17 18:05 Absolute Nucleated RBC 0.00 x10^3/uL 01/28/17 18:05 Nucleated RBC % 0.0 /100WBC 01/28/17 18:05 ESR 27 mm/Hr (0-20) H 01/28/17 18:05 PT 12.1 secs (9.9-12.6) 01/28/17 18:05 INR 1.1 (0.8-1.2) 01/28/17 18:05 APTT 28.8 secs (24.9-33.3) 01/28/17 18:05 Sodium 136 mmol/L (135-145) 01/28/17 18:05 Potassium 3.8 mmol/L (3.5-5.0) 01/28/17 18:05 Chloride 106 mmol/L (101-111) 01/28/17 18:05 Carbon Dioxide 20 mmol/L (21-32) L 01/28/17 18:05 Anion Gap 10.0 (6-13) 01/28/17 18:05 BUN 11 mg/dL (6-20) 01/28/17 18:05 Creatinine 0.5 mg/dL (0.4-1.0) 01/28/17 18:05 Estimated GFR (MDRD) 142 (>89) 01/28/17 18:05 Glucose 89 mg/dL (70-100) 01/28/17 18:05 Lactic Acid 0.6 mmol/L (0.5-2.2) 01/28/17 18:05 Calcium 9.3 mg/dL (8.5-10.3) 01/28/17 18:05 Total Bilirubin 0.8 mg/dL (0.2-1.0) 01/28/17 18:05 AST 17 IU/L (10-42) 01/28/17 18:05 ALT 24 IU/L (10-60) 01/28/17 18:05 Alkaline Phosphatase 67 IU/L (42-121) 01/28/17 18:05 C-Reactive Protein 1.8 mg/dL (0-1.0) H 01/28/17 18:05 Total Protein 7.5 g/dL (6.7-8.2) 01/28/17 18:05 Albumin 3.8 g/dL (3.2-5.5) 01/28/17 18:05 Globulin 3.7 g/dL (2.1-4.2) 01/28/17 18:05 Albumin/Globulin Ratio 1.0 (1.0-2.2) 01/28/17 18:05 Lipase 20 U/L (22-51) L 01/28/17 18:05 Serum HCG, Qual NEGATIVE 01/28/17 18:05 Urine Color YELLOW 01/28/17 22:05 Urine Clarity CLEAR (CLEAR) 01/28/17 22:05 Urine pH 6.0 PH (5.0-7.5) 01/28/17 22:05 Ur Specific Amalia 1.025 (1.002-1.030) 01/28/17 22:05 Urine Protein NEGATIVE mg/dL (NEGATIVE) 01/28/17 22:05 Urine Glucose (UA) NEGATIVE mg/dL (NEGATIVE) 01/28/17 22:05 Urine Ketones 40 mg/dL (NEGATIVE) H 01/28/17 22:05 Urine Occult Blood NEGATIVE (NEGATIVE) 01/28/17 22:05 Urine Nitrite NEGATIVE (NEGATIVE) 01/28/17 22:05 Urine Bilirubin NEGATIVE (NEGATIVE) 01/28/17 22:05 Urine Urobilinogen 0.2 (NORMAL) E.U./dL (NORMAL) 01/28/17 22:05 Ur Leukocyte Esterase NEGATIVE (NEGATIVE) 01/28/17 22:05 Ur Microscopic Review NOT INDICATED 01/28/17 22:05 Urine Culture Comments NOT INDICATED 01/28/17 22:05 Urine HCG, Qual NEGATIVE 01/28/17 22:05 Urine Opiates Screen NEGATIVE (NEGATIVE) 01/28/17 22:05 Ur Oxycodone Screen NEGATIVE (NEGATIVE) 01/28/17 22:05 Urine Methadone Screen NEGATIVE (NEGATIVE) 01/28/17 22:05 Ur Propoxyphene Screen NEGATIVE (NEGATIVE) 01/28/17 22:05 Ur Barbiturates Screen NEGATIVE (NEGATIVE) 01/28/17 22:05 Ur Tricyclics Screen NEGATIVE (NEGATIVE) 01/28/17 22:05 Ur Phencyclidine Scrn NEGATIVE (NEGATIVE) 01/28/17 22:05 Ur Amphetamine Screen NEGATIVE (NEGATIVE) 01/28/17 22:05 U Methamphetamines Scrn NEGATIVE (NEGATIVE) 01/28/17 22:05 U Benzodiazepines Scrn POSITIVE (NEGATIVE) H 01/28/17 22:05 Urine Cocaine Screen NEGATIVE (NEGATIVE) 01/28/17 22:05 U Cannabinoids Screen POSITIVE (NEGATIVE) H 01/28/17 22:05 Group A Strep Rapid Negative (Negative) 01/28/17 17:22
--- NOTE | 2017-01-29 18:43 | XRAY Preliminary Report ---
Exam: XR CHEST 1 VIEW IMPRESSION: Central line tip at mid SVC. No pneumothorax. [facility] SITE ID: [id number]
--- NOTE | 2017-01-29 18:45 | XRAY Report ---
EXAM: CHEST RADIOGRAPHY EXAM DATE: 01/29/2017 06:23 PM. CLINICAL HISTORY: Central line placement. COMPARISON: 01/15/2006. TECHNIQUE: 1 view. FINDINGS: Lungs/Pleura: No focal opacities evident. No pleural effusion. No pneumothorax. Mediastinum: There is a right jugular central line with tip at the mid SVC. The heart size is normal. Other: None. IMPRESSION: Central line tip at mid SVC. No pneumothorax. [facility] Referring Provider Line: [phone] SITE ID: [id number]
[2017-01-29] MEDS ORDERED: SODIUM CHLORIDE 0.9% 250 ML IV ONE (18:57)
[2017-01-29] MEDS: traZODone 50 MG TABLET PO SCH (20:13)
[2017-01-29] MEDS: HYDROmorphone 2 MG TABLET PO PRN (22:28)
[2017-01-30] MEDS: diphenhydrAMINE INJ 50 MG/ML VIAL IVP PRN ×3 (00:55→13:34)
[2017-01-30] MEDS: SODIUM CHLORIDE FLUSH 0.9% 10 ML SYRINGE IVP PRN ×3 (00:55→07:01)
[2017-01-30] MEDS: HYDROmorphone 2 MG TABLET PO PRN ×3 (04:12→18:41)
[2017-01-30] MEDS: VANCOMYCIN INJ 1 GM in SODIUM CHLORIDE 0.9% 250 ML IV SCH ×3 (04:12→18:41)
[2017-01-30] MEDS: SODIUM CHLORIDE FLUSH 0.9% 10 ML SYRINGE IVP SCH ×3 (05:57→18:44)
[2017-01-30] MEDS: PANTOPRAZOLE 40 MG TABLET PO SCH (07:01)
[2017-01-30] MEDS ORDERED: HEPARIN 5,000 UNIT/ML VIAL IVP SCH (08:29)
[2017-01-30] MEDS ORDERED: HEPARIN 25,000 UNITS/500 ML NS 25,000 UNIT/500 ML BAG IV SCH (09:00)
[2017-01-30] MEDS ORDERED: HYDROmorphone 1 MG/ML SYRINGE IVP SCH ×2 (09:00→15:00)
[2017-01-30] MEDS: DROSPIRENONE PO SCH (09:11)
[2017-01-30] MEDS: CETIRIZINE 10 MG TABLET PO SCH (09:11)
[2017-01-30] MEDS: ETHINYL ESTRADIOL PO SCH (09:11)
[2017-01-30] MEDS: POLYETHYLENE GLYCOL 3350 17 GM PACKET PO SCH (09:21)
[2017-01-30] MEDS ORDERED: LORazepam 0.5 MG TABLET PO PRN (10:15)
[2017-01-30] MEDS ORDERED: clonazePAM 0.5 MG TABLET PO PRN (12:27)
--- NOTE | 2017-01-30 14:22 | PROVIDER PROGRESS NOTE ---
Assessment/Plan - Problem List (1) Arm pain, right Assessment/Plan: Due to location and started after RIJ line was placed traumatically, will order Duplex venous Doppler to R/O R arm DVT. Because my suspision is high, I will start empiric iv Heparin with a Heparin bolus and drip, stop Pradaxa for now. Increase pain meds gingerly, since she has abused iv Dilaudid. Following that Doppler, the RIJ will be DCd and a PICC line will be placed. (2) Rash Assessment/Plan: Improved with Certrazine, Benadryl and iv Vanco plus pain meds. Awaiting results of Echo, blood culture to consider a long course of therapy with iv antibiotics. (3) Ischemia of digits of hand Assessment/Plan: Reports from outside facility have been obtained: Vascular digital plethysmography of both hands done on 01/11/2017 showed: Abnormal waveforms bilaterally of the digits indicating severe digital ischemia. Angiogram of the right arm performed 01/11/2017: Tiny filling defect/occlusion in the second digital artery, radial aspect, essentially unchanged from 2016. An Echo done on that admission showed: No intracardiac thrombus however no repeat bubble study was done to confirm the PFO On 11/20/2016, at a prior admission, she underwent an angiogram that showed: Ischemia of the left upper extremity and she was admitted for thrombolysis, had a 3 day stay in the ICU, iv Heparin was changed to Pradaxa at discharge. There is no discussion as to why Pradaxa was chosen. At the time of discharge her diagnoses were: Ischemia of the digits of the left hand, ischemia of the left upper extremity and superficial thrombophlebitis of the left upper extremity. The patient believes that she had an echocardiogram on that admission with bubble study to diagnose a PFO but this is not summarized in the November discharge note from [facility]. Because of the current concern for DVT, Pradaxa will be stopped and IV heparin will be started until workup is done. Pradaxa would be an appropriate longer term treatment for a DVT but not for an arterial thrombus, which she had in 11/24. (4) IV drug abuse Assessment/Plan: Dilaudid iv injection as well as opioids and cannibis were positive on past drug screens. She apparantly had inpatient detox earlier this month with Methadone and Clonidine patch. Further avoidance and management of this habit are advised. (5) PFO (patent foramen ovale) Assessment/Plan: Apparently a previous Echo with Bubble study showed a PFO. I am unable to get that Echo result, But this diagnosis was mentioned in her 01/24 summary from [facility]. (6) Myalgia Assessment/Plan: Today the patient does not have complaints of generalized muscle and joint aches , she is very focused on the right upper arm pain. W/U of that pain is as above. - Current Meds Current Meds: Current Medications Generic Name Dose Route Start Last Admin Trade Name Freq PRN Reason Stop Dose Admin Calcium Carbonate/Glycine 500 mg 01/29/17 01:20 01/30/17 01:05 Tums PO 500 mg BID PRN Administration INDIGESTION Cetirizine HCl 10 mg 01/29/17 09:00 01/30/17 09:11 Zyrtec PO 10 mg DAILY IVAN Administration Diphenhydramine HCl 37.5 mg 01/29/17 11:38 01/30/17 13:34 Benadryl Inj IVP 50 mg Q6H PRN Administration Allergy Symptoms Hydromorphone HCl 2 mg 01/29/17 21:47 01/30/17 11:47 Dilaudid PO 2 mg Q6HR PRN Administration Severe Pain Vancomycin HCl 1 gm/ Sodium 250 mls @ 150 mls/hr 01/30/17 03:00 01/30/17 13: 30 Chloride IV Infused Q8H IVAN Infusion Heparin Sodium/Sodium Chloride 25,000 unit in 500 mls @ 30.6 mls/hr 01/30/17 09:00 01/30/17 09:13 Heparin/0.45% Nacl IV 15 unit/kg/hr .[id number] IVAN 30.6 mls/hr Protocol Administration 15 UNIT/KG/HR Lorazepam 1 mg 01/30/17 10:15 01/30/17 11:47 Ativan PO 1 mg Q6H PRN Administration Anxiety Non-Formulary Medication 1 tab 01/29/17 09:00 01/30/17 09:11 Ethinyl Estradiol/Drospirenone [Ocella 3 Mg-0.03 Mg Tablet] PO Not Given DAILY IVAN Pantoprazole Sodium 40 mg 01/29/17 07:00 01/30/17 07:01 Protonix PO 40 mg QDAC IVAN Administration Polyethylene Glycol 17 gm 01/29/17 09:00 01/30/17 09:21 Miralax PO Not Given DAILY IVAN Sodium Chloride 10 ml 01/28/17 20:51 01/30/17 07:01 Normal Saline Flush 0.9% IVP 20 ml PRN PRN Administration NEEDED PER PROVIDER ORDERS Sodium Chloride 10 ml 01/28/17 22:00 01/30/17 08:49 Normal Saline Flush 0.9% IVP 10 ml Q8HR IVAN Administration Trazodone HCl 300 mg 01/29/17 21:00 01/29/17 20:13 Desyrel PO 300 mg QPM IVAN Administration - Lab Result Fish Bone Diagrams: 01/28/17 18:05 01/28/17 18:05 - Additional Planning My Orders: My Active Orders 01/30/17 Duplex Ext Veins Right [US] Stat 01/30/17 05:53 Heparin Flush 30 - 50 unit IVP PRN PRN 01/30/17 08:33 PICC Line Care [RC] Q4H PICC Line Insert [RC] .ONCE 01/30/17 09:00 Heparin 25,000 Units/500 ml Ns [Heparin/0.45% NaCl] 25,000 unit in 500 ml IV 15 unit/kg/hr 01/30/17 10:15 LORazepam [Ativan] 1 mg PO Q6H PRN 01/30/17 12:27 clonazePAM [KlonoPIN] 1 mg PO BID PRN 01/30/17 13:00 Saccharomyces Boulardii [Florastor] 250 mg PO BIDWM 01/30/17 14:20 HYDROmorphone INJ SYRINGE [Dilaudid Inj Syringe] 2.5 mg IVP ONCE ONE Subjective - Subjective Patient Reports: Pain (New pain in R upper arm (ever since RIJ was put in last nite)) Nursing Reports: Other (Pt asking for stronger pain meds. Pt grunting with pain only when RN or MD walk into room. RIJ placement was traumatic. Two attempts unsuccessful and Pt "jerked her head". 4th attempt was successful and XRay confirms good position.) Objective Vital Signs: Vital Signs - 24 hr 01/29/17 01/29/17 01/29/17 15:33 17:36 18:20 Temperature 37.3 C 37.3 C Heart Rate [ 80 Brachial] Heart Rate [ 83 90 Monitoring electrodes] Respiratory 16 23 14 Rate Blood Pressure 124/84 H 145/91 H [Left Brachial artery] Blood Pressure 122/77 [Right Brachial artery] O2 Saturation 95 96 99 01/29/17 01/29/17 01/30/17 20:24 22:23 01:02 Temperature 36.6 C 36.8 C 37 C Heart Rate [ 88 Brachial] Heart Rate [ 80 87 Monitoring electrodes] Respiratory 16 17 18 Rate Blood Pressure [Left Brachial artery] Blood Pressure 135/78 H 129/64 120/82 H [Right Brachial artery] O2 Saturation 95 95 95 01/30/17 08:45 Temperature 37.4 C Heart Rate [ Brachial] Heart Rate [ 89 Monitoring electrodes] Respiratory 18 Rate Blood Pressure 127/77 [Left Brachial artery] Blood Pressure [Right Brachial artery] O2 Saturation 97 Oxygen O2 Source Room air I&O (Last 24 Hrs): Intake and Output Totals x24h 01/28/17 01/29/17 01/30/17 23:59 23:59 23:59 Intake Total 1350 1500 1500 Output Total 50 100 Balance 1300 1400 1500 General: Moderate distress HEENT: Mucous membr. moist/pink Neck: Supple, Other (RIJ in place and tape is limiting head turning motion) Neuro: Non Focal Cardiovascular: Regular rate, No murmurs Respiratory: No respiratory distress Abdomen: Soft Extremities: Other (Smaller and less painful macules of both hands, dorsum. R upper arm non-tender to touch and not red or swollen. R radial pulse stronger than L) - Results Results: Laboratory Results WBC 9.3 x10^3/uL (4.8-10.8) 01/28/17 18:05 RBC 4.88 10^6/uL (4.20-5.40) 01/28/17 18:05 Hgb 12.9 g/dL (12.0-16.0) 01/28/17 18:05 Hct 39.2 % (37.0-47.0) 01/28/17 18:05 MCV 80.4 fL (81.0-99.0) L 01/28/17 18:05 MCH 26.4 pg (27.0-31.0) L 01/28/17 18:05 MCHC 32.9 g/dL (32.0-36.0) 01/28/17 18:05 RDW 14.3 % (12.0-15.0) 01/28/17 18:05 Plt Count 350 10^3/uL (130-450) 01/28/17 18:05 MPV 7.4 fL (7.9-10.8) L 01/28/17 18:05 Neut # 5.7 10^3/uL (1.5-6.6) 01/28/17 18:05 Lymph # 2.4 10^3/uL (1.5-3.5) 01/28/17 18:05 Stokes # 0.6 10^3/uL (0.0-1.0) 01/28/17 18:05 Eos # 0.4 10^3/uL (0.0-0.7) 01/28/17 18:05 Baso # 0.1 10^3/uL (0.0-0.1) 01/28/17 18:05 Absolute Nucleated RBC 0.00 x10^3/uL 01/28/17 18:05 Nucleated RBC % 0.0 /100WBC 01/28/17 18:05 ESR 27 mm/Hr (0-20) H 01/28/17 18:05 PT 12.1 secs (9.9-12.6) 01/28/17 18:05 INR 1.1 (0.8-1.2) 01/28/17 18:05 APTT 28.8 secs (24.9-33.3) 01/28/17 18:05 Sodium 136 mmol/L (135-145) 01/28/17 18:05 Potassium 3.8 mmol/L (3.5-5.0) 01/28/17 18:05 Chloride 106 mmol/L (101-111) 01/28/17 18:05 Carbon Dioxide 20 mmol/L (21-32) L 01/28/17 18:05 Anion Gap 10.0 (6-13) 01/28/17 18:05 BUN 11 mg/dL (6-20) 01/28/17 18:05 Creatinine 0.5 mg/dL (0.4-1.0) 01/28/17 18:05 Estimated GFR (MDRD) 142 (>89) 01/28/17 18:05 Glucose 89 mg/dL (70-100) 01/28/17 18:05 Lactic Acid 0.6 mmol/L (0.5-2.2) 01/28/17 18:05 Calcium 9.3 mg/dL (8.5-10.3) 01/28/17 18:05 Total Bilirubin 0.8 mg/dL (0.2-1.0) 01/28/17 18:05 AST 17 IU/L (10-42) 01/28/17 18:05 ALT 24 IU/L (10-60) 01/28/17 18:05 Alkaline Phosphatase 67 IU/L (42-121) 01/28/17 18:05 C-Reactive Protein 1.8 mg/dL (0-1.0) H 01/28/17 18:05 Total Protein 7.5 g/dL (6.7-8.2) 01/28/17 18:05 Albumin 3.8 g/dL (3.2-5.5) 01/28/17 18:05 Globulin 3.7 g/dL (2.1-4.2) 01/28/17 18:05 Albumin/Globulin Ratio 1.0 (1.0-2.2) 01/28/17 18:05 Lipase 20 U/L (22-51) L 01/28/17 18:05 Serum HCG, Qual NEGATIVE 01/28/17 18:05 Urine Color YELLOW 01/28/17 22:05 Urine Clarity CLEAR (CLEAR) 01/28/17 22:05 Urine pH 6.0 PH (5.0-7.5) 01/28/17 22:05 Ur Specific Wilkinson 1.025 (1.002-1.030) 01/28/17 22:05 Urine Protein NEGATIVE mg/dL (NEGATIVE) 01/28/17 22:05 Urine Glucose (UA) NEGATIVE mg/dL (NEGATIVE) 01/28/17 22:05 Urine Ketones 40 mg/dL (NEGATIVE) H 01/28/17 22:05 Urine Occult Blood NEGATIVE (NEGATIVE) 01/28/17 22:05 Urine Nitrite NEGATIVE (NEGATIVE) 01/28/17 22:05 Urine Bilirubin NEGATIVE (NEGATIVE) 01/28/17 22:05 Urine Urobilinogen 0.2 (NORMAL) E.U./dL (NORMAL) 01/28/17 22:05 Ur Leukocyte Esterase NEGATIVE (NEGATIVE) 01/28/17 22:05 Ur Microscopic Review NOT INDICATED 01/28/17 22:05 Urine Culture Comments NOT INDICATED 01/28/17 22:05 Urine HCG, Qual NEGATIVE 01/28/17 22:05 Last Dose Date 01/30/17 01/30/17 10:32 Last Dose Time 0555 01/30/17 10:32 Vancomycin Trough 12.1 ug/mL (5.0-15.0) 01/30/17 10:32 Urine Opiates Screen NEGATIVE (NEGATIVE) 01/28/17 22:05 Ur Oxycodone Screen NEGATIVE (NEGATIVE) 01/28/17 22:05 Urine Methadone Screen NEGATIVE (NEGATIVE) 01/28/17 22:05 Ur Propoxyphene Screen NEGATIVE (NEGATIVE) 01/28/17 22:05 Ur Barbiturates Screen NEGATIVE (NEGATIVE) 01/28/17 22:05 Ur Tricyclics Screen NEGATIVE (NEGATIVE) 01/28/17 22:05 Ur Phencyclidine Scrn NEGATIVE (NEGATIVE) 01/28/17 22:05 Ur Amphetamine Screen NEGATIVE (NEGATIVE) 01/28/17 22:05 U Methamphetamines Scrn NEGATIVE (NEGATIVE) 01/28/17 22:05 U Benzodiazepines Scrn POSITIVE (NEGATIVE) H 01/28/17 22:05 Urine Cocaine Screen NEGATIVE (NEGATIVE) 01/28/17 22:05 U Cannabinoids Screen POSITIVE (NEGATIVE) H 01/28/17 22:05 Group A Strep Rapid Negative (Negative) 01/28/17 17:22
--- NOTE | 2017-01-30 15:28 | Ultrasound Preliminary Report ---
Exam: US DUPLEX EXT VEINS RIGHT IMPRESSION: No evidence of thrombosis [facility] SITE ID: [id number]
--- NOTE | 2017-01-30 15:30 | Ultrasound Report ---
EXAM: RIGHT UPPER EXTREMITY VENOUS ULTRASOUND EXAM DATE: 01/30/2017 02:45 PM. CLINICAL HISTORY: R upper arm pain below shoulder. COMPARISON: None. TECHNIQUE: Real-time sonographic vascular imaging was performed by the speech/language therapist through the lower extremity utilizing both color-flow and Doppler spectral analysis. Multiple direct customer service representative static kellen ges were saved for review. FINDINGS: The internal jugular, subclavian, axillary, cephalic, brachial, and basilic veins were evaluated. The re is no evidence of thrombosis. IMPRESSION: No evidence of thrombosis [facility] Referring Provider Line: [phone] SITE ID: [id number]
[2017-01-30] MEDS ORDERED: CYCLOBENZAPRINE 10 MG TABLET PO PRN (17:08)
[2017-01-30] MEDS ORDERED: ACETAMINOPHEN 1,000 MG/100 ML 100 ML IV PRN (17:08)
[2017-01-30] MEDS: SACCHAROMYCES BOULARDII 250 MG CAPSULE PO SCH ×2 (18:32→18:41)
[2017-01-30] MEDS: CELECOXIB 100 MG CAPSULE PO SCH ×2 (18:41→21:01)
[2017-01-30] MEDS: GABAPENTIN 100 MG CAPSULE PO SCH ×2 (18:41→21:01)
--- NOTE | 2017-01-30 19:08 | MRI Preliminary Report ---
Exam: MRI UPPER ARM/HUMERUS RT W/O IMPRESSION: No MRI abnormalities in the humerus/upper arm. [facility] MUSCULOSKELETAL RADIOLOGY SECTION SITE ID: [id number]
--- NOTE | 2017-01-30 19:11 | MRI Report ---
EXAM: RIGHT HUMERUS MRI WITHOUT CONTRST EXAM DATE: 01/30/2017 06:16 PM. CLINICAL HISTORY: Right arm pain COMPARISON: None. TECHNIQUE: Multiplanar, multisequence T1-weighted and fluid-sensitive sequences of the humerus/upper arm without contrast. Other: None. FINDINGS: Bones: No fractures or subluxations. No marrow edema. No bone lesions. Joint Spaces: Visualized portions of the shoulder and elbow joints are unremarkable. Tendons: Where visualized, the biceps tendons are intact Musculature: No edema or fatty atrophy. Other: The subcutaneous tissues are unremarkable. IMPRESSION: No MRI abnormalities in the humerus/upper arm. [facility] MUSCULOSKELETAL RADIOLOGY SECTION Referring Provider Line: [phone] SITE ID: [id number]
[2017-01-30] MEDS: traZODone 50 MG TABLET PO SCH (21:00)
[2017-01-30] MEDS ORDERED: DULoxetine 30 MG CAPSULE PO SCH (21:00)
[2017-01-30] MEDS: DABIGATRAN 75 MG CAPSULE PO SCH (21:01)
[2017-01-31] MEDS: HYDROmorphone 2 MG TABLET PO PRN ×2 (00:59→08:59)
[2017-01-31] MEDS: VANCOMYCIN INJ 1 GM in SODIUM CHLORIDE 0.9% 250 ML IV SCH (02:47)
[2017-01-31] MEDS: SODIUM CHLORIDE FLUSH 0.9% 10 ML SYRINGE IVP PRN (04:44)
[2017-01-31] MEDS: diphenhydrAMINE INJ 50 MG/ML VIAL IVP PRN (06:01)
[2017-01-31] MEDS: GABAPENTIN 100 MG CAPSULE PO SCH (06:01)
[2017-01-31] MEDS: SODIUM CHLORIDE FLUSH 0.9% 10 ML SYRINGE IVP SCH (06:02)
[2017-01-31 06:03] VITALS: BP 112/73
[2017-01-31] MEDS: PANTOPRAZOLE 40 MG TABLET PO SCH (06:47)
[2017-01-31] MEDS: DABIGATRAN 75 MG CAPSULE PO SCH (08:58)
[2017-01-31] MEDS: POLYETHYLENE GLYCOL 3350 17 GM PACKET PO SCH (08:59)
[2017-01-31] MEDS: ETHINYL ESTRADIOL PO SCH (08:59)
[2017-01-31] MEDS: DROSPIRENONE PO SCH (08:59)
[2017-01-31] MEDS: CETIRIZINE 10 MG TABLET PO SCH (08:59)
[2017-01-31] MEDS: SACCHAROMYCES BOULARDII 250 MG CAPSULE PO SCH (08:59)
[2017-01-31] MEDS: CELECOXIB 100 MG CAPSULE PO SCH (08:59)
--- NOTE | 2017-01-31 09:03 | Discharge Plan ---
Discharge Plan Disposition: 01 Home, Self Care Condition: Fair Diet: Regular Activity Restrictions: Activity as Tolerated Additional Instructions or Follow Up instructions: Resume all your medicines as you were taking before this hospitalization. See your doctor for follow-up and for further pain management No Smoking: If you smoke, Please STOP! Call for help. Follow-up with: Lance Marie MD [Primary Care Provider] -
[2017-02-02 18:01] LABS: 18 KD (IGG) BAND NON-REACTIVE; 23 KD (IGG) BAND NON-REACTIVE; 28 KD (IGG) BAND NON-REACTIVE; 30 KD (IGG) BAND NON-REACTIVE; 39 KD (IGG) BAND NON-REACTIVE; 41 KD (IGG) BAND REACTIVE; 41 KD (IGM) BLOT REACTIVE; 45 KD (IGG) BAND NON-REACTIVE; 58 KD (IGG) BAND NON-REACTIVE; 66 KD (IGG) BAND NON-REACTIVE; 93 KD (IGG) BAND NON-REACTIVE
--- NOTE | 2017-02-04 18:51 | DISCHARGE SUMMARY ---
DATE OF SERVICE: 01/31/2017 Physician: Argelia Neely MD DATE OF ADMISSION: 01/28/2017. DATE OF DISCHARGE: 01/31/2017. HISTORY OF PRESENT ILLNESS: This is a 31-year-old white female with a history of obesity, GERD, depression and anxiety, IV drug abuse (which the patient requests that the family not be made aware of). The patient underwent thrombectomy for left upper extremity arterial thrombosis at another facility. She also had angiography of the right arm done, approximately 2 weeks before this admission here, for embolism on that side as well. She has been maintained on Pradaxa for several months, since the first thrombolysis. The patient presented here with painful and pruritic lesions of her palms and the soles of her feet and was admitted for evaluation for endocarditis. HOSPITAL COURSE AND DISCHARGE DIAGNOSES 1. Right-sided upper arm pain. The day after admission, the patient had complaint pain of her entire right arm from the elbow to the shoulder. This occurred after a right IJ line was inserted requiring 4 attempts. She therefore underwent a duplex Doppler of the venous system of the right arm to rule out DVT, and this was ruled out. She underwent MRI scan of the right shoulder and arm to rule out hematoma or other mass and this was also unremarkable. It was felt that she had possible pain from the recent right IJ catheter insertion site and no specific treatment other than pain control was advised for this (using Motrin prn). 2. Rash. Because of the suspicion of Janeway lesions, the patient underwent workup for endocarditis, including an echo and blood cultures. She was hospitalized here for 48 hours until her blood cultures were growing no pathogens. An echo showed no evidence of valvular structural abnormality to suggest endocarditis. The rash was felt to be a viral exanthem as it nearly resolved over 48 hours. 3. Ischemia of the digits of the hands. This was a result of the prior arterial thrombi diagnosed in November 2016 and earlier this month. She was on IV heparin, weight-based protocol, during portions of this admission, but was discharged on her same Pradaxa dose. 4. Intravenous drug abuse. The patient admitted to crushing Dilaudid tablets, suspending the powder in liquid and injecting this formulation. She had been in some type of detox program just 7-10 days following the hospitalization for the right-sided arterial thrombus management. While here, she had signs of withdrawal. While here, she did request escalating doses of narcotics for pain management, stating that the right upper arm was in significant pain (see #1 above). The patient was discharged with no narcotics for pain management and advised to avoid IV drug abuse. 5. Patent foramen ovale. Records obtained from the other facility indicated that there was a prior echo that showed a patent foramen ovale. During echo repeated here for evaluation for endocarditis, an IV injection was done, but not adequate enough to confirm or rule out the PFO (because at that point, the patient only had an IV in her dorsum of her foot and inadequate agitated "bubbles" were visualized on the echo). MEDICATIONS AT THE TIME OF DISCHARGE: 1. Cetirizine 10 mg p.o. daily. 2. Clonazepam 1 mg p.o. p.r.n. agitation. 3. Pradaxa 150 mg p.o. b.i.d. 4. Cymbalta 60 mg p.o. at bedtime. 5. Estradiol tablets daily. 6. Methocarbamol 750 mg p.o. at bedtime. 7. Nifedipine ER 30 mg p.o. daily. 8. Omeprazole 20 mg p.o. b.i.d. 9. Trazodone 300 mg p.o. at bedtime and Dilaudid tablets were not reordered. CONDITION AT DISCHARGE: Fair. PHYSICAL EXAMINATION AT DISCHARGE VITAL SIGNS: Blood pressure 112/73, pulse of 79 in sinus rhythm, respiratory rate 18, oxygen saturation 98 percent. HEENT: Unremarkable. Moist oral mucosa. Good oral dentition. NECK: Without JVD or carotid bruits. The right IJ site was bandaged. CHEST: Clear. HEART: Sounds normal. No audible murmur. ABDOMEN: Obese, nontender. EXTREMITIES: Small macular red spots that were fading, on the left and right hands on the palmar and dorsal aspects, and one lesion had completely faded on the dorsum of the right foot. She had a good right-sided radial pulse, weaker on the left radial. She had good bilateral dorsalis pedis pulses. NEUROLOGICALLY: Grossly intact. ALLERGIES 1. TYLENOL. 2. HYDROCODONE. 3. VENLAFAXINE. FOLLOWUP: With her PCP and her vascular doctor at previous hospital. CODE STATUS: FULL CODE. Time required to complete this entire discharge: 30 minutes. TD: 02/04/2017 18:03 MTDD
== END 2017-01-31 09:52 | disposition home or self-care (01) | DRG 866 ==
LOC: ED 16:52 → MS3 20:51
PROVIDERS: ADMIT Hospitalist; ATTEND Internal Medicine
PROC: 02HV33Z Insertion of Infusion Device into Superior Vena Cava, Percutaneous Approach (ICD-10-PCS; principal; 2017-01-29)
DX: B09 Unspecified viral infection characterized by skin and mucous membrane lesions (principal); Q21.1 Atrial septal defect; I74.2 Embolism and thrombosis of arteries of the upper extremities; I99.8 Other disorder of circulatory system; F11.10 Opioid abuse, uncomplicated; M79.1 Myalgia; M79.621 Pain in right upper arm; R11.0 Nausea; T40.2X5A Adverse effect of other opioids, initial encounter; Y92.239 Unspecified place in hospital as the place of occurrence of the external cause; E66.9 Obesity, unspecified; K21.9 Gastro-esophageal reflux disease without esophagitis; F32.9 Major depressive disorder, single episode, unspecified; F41.9 Anxiety disorder, unspecified; Z79.01 Long term (current) use of anticoagulants; Z68.37 Body mass index [BMI] 37.0-37.9, adult; Z86.718 Personal history of other venous thrombosis and embolism
CPT/HCPCS: 36415; 71010; 80053; 80306; 81001; 81003; 81025; 83605; 83690; 84703; 85025; 85520; 85610; 85651; 85730; 86140; 86617; 87040; 87070; 87086; 87430; 87493; 93306; 96365; 99283; 99284

== ENCOUNTER → 2017-03-02 | Outpatient (CLI) | payer MEDICAID, OTHER | LOC: LAB.F 08:00 | PROVIDERS: ATTEND Nurse Practitioner Family | DX: R60.9 Edema, unspecified (principal) | CPT/HCPCS: 36415; 80053 ==

== ENCOUNTER 2017-03-12 13:21 | Outpatient (CLI) | payer MEDICAID | END 2017-03-12 13:22 | disposition home or self-care (01) | LOC: LAB.F 13:21 | PROVIDERS: ATTEND Internal Medicine Cardiovascular Disease | DX: I50.9 Heart failure, unspecified (principal); R60.9 Edema, unspecified | CPT/HCPCS: 36415; 80053; 83880 ==

== ENCOUNTER 2018-03-30 07:31 | Outpatient (CLI) | payer SELFPAY | END 2018-03-30 07:32 | disposition EMS.NT | LOC: EMS 07:31 | PROVIDERS: ATTEND Surgery | DX: R11.2 Nausea with vomiting, unspecified (principal) ==

== ENCOUNTER 2018-10-31 15:40 | Outpatient (CLI) | payer SELFPAY ==
[2018-10-31 18:42] LABS: BASOPHILS % (AUTO) 0.3 %; EOSINOPHILS # (AUTO) 0.3 10^3/uL (0.0-0.7); EOSINOPHILS % (AUTO) 4.2 %; HGB - HEMOGLOBIN 14.2 g/dL (12.0-16.0); LYMPHOCYTES # (AUTO) 2.6 10^3/uL (1.5-3.5); LYMPHOCYTES % (AUTO) 36.3 %; MEAN CORPUSCULAR HEMOGLOBIN 28.2 pg (27.0-31.0); MEAN CORPUSCULAR HGB CONC 32.2 g/dL (32.0-36.0); MEAN CORPUSCULAR VOLUME 87.5 fL (81.0-99.0); MEAN PLATELET VOLUME 10.9 fL (7.9-10.8); MONOCYTES # (AUTO) 0.3 10^3/uL (0.0-1.0); MONOCYTES % (AUTO) 3.6 %; NEUTROPHILS # (AUTO) 3.9 10^3/uL (1.5-6.6); NEUTROPHILS % (AUTO) 55.2 %; PLT - PLATELET COUNT 260 10^3/uL (130-450); RED BLOOD COUNT 5.04 10^6/uL (4.20-5.40); RED CELL DISTRIBUTION WIDTH 12.6 % (12.0-15.0); WHITE BLOOD COUNT 7.1 x10^3/uL (4.8-10.8)
[2018-10-31 18:55] LABS: ALBUMIN 3.4 g/dL (3.2-5.5); BILIRUBIN,TOTAL 0.5 mg/dL (0.2-1.0); CALCIUM 9.1 mg/dL (8.5-10.3); CREATININE 0.7 mg/dL (0.4-1.0); TOTAL PROTEIN 6.8 g/dL (6.7-8.2)
[2018-10-31 19:12] LABS: BILIRUBIN,URINE NEGATIVE (NEGATIVE); GLUCOSE, URINE (UA) NEGATIVE (NEGATIVE); KETONES,URINE (UA) NEGATIVE (NEGATIVE); LEUKOCYTE ESTERASE, URINE NEGATIVE (NEGATIVE); NITRITE,URINE NEGATIVE (NEGATIVE); OCCULT BLOOD,URINE NEGATIVE (NEGATIVE); PROTEIN,URINE NEGATIVE (NEGATIVE); UROBILINOGEN,URINE 0.2 (NORMAL) E.U./dL (NORMAL)
[2018-10-31 19:14] LABS: CLARITY,URINE CLEAR (CLEAR)
== END 2018-10-31 15:41 | disposition home or self-care (01) ==
LOC: LAB.S 15:40
PROVIDERS: ATTEND Internal Medicine
DX: G47.33 Obstructive sleep apnea (adult) (pediatric) (principal); R53.83 Other fatigue
CPT/HCPCS: 36415; 80053; 81003; 84443; 85025

== ENCOUNTER 2019-03-10 11:36 | Outpatient (CLI) | payer MEDICAID | END 2019-03-10 11:37 | disposition home or self-care (01) | LOC: LAB.S 11:36 | PROVIDERS: ATTEND Internal Medicine | DX: R60.9 Edema, unspecified (principal) | CPT/HCPCS: 36415; 83880 ==

== ENCOUNTER 2021-04-08 08:00 | Outpatient (CLI) | payer MEDICAID, OTHER ==
--- NOTE | 2021-04-08 18:13 | XRAY Report ---
PROCEDURE: Foot 3 View RT INDICATIONS: RIGHT FOOT PAIN TECHNIQUE: 3 views of the foot were acquired. COMPARISON: None FINDINGS: Bones: No fractures or dislocations. No suspicious bony lesions. Soft tissues: No tibiotalar joint effusion. Achilles tendon appears normal. IMPRESSION: No osseous lesion. If there are persistent symptoms or continued clinical concern for pathology, then repeat plain film radiographs (7-10 days) or advanced imaging (CT, MR, bone scan) should be consider ed for further evaluation. Reviewed by: Dory Powell MD, PhD on 04/08/2021 6:12 PM PST Approved by: Dory Powell MD, PhD on 04/08/2021 6:12 PM PST Station ID: [id number]
== END 2021-04-08 23:59 | disposition home or self-care (01) ==
LOC: DI.S 08:00
PROVIDERS: ATTEND Physician Assistant
DX: M79.671 Pain in right foot (principal)

== ENCOUNTER 2021-08-28 08:00 | Outpatient (CLI) | payer OTHER ==
[2021-08-28 10:12] LABS: BILIRUBIN,URINE NEGATIVE (NEGATIVE); GLUCOSE, URINE (UA) NEGATIVE (NEGATIVE); KETONES,URINE (UA) NEGATIVE (NEGATIVE); LEUKOCYTE ESTERASE, URINE NEGATIVE (NEGATIVE); NITRITE,URINE NEGATIVE (NEGATIVE); OCCULT BLOOD,URINE SMALL (NEGATIVE); PROTEIN,URINE NEGATIVE (NEGATIVE); UROBILINOGEN,URINE 0.2 (NORMAL) E.U./dL (NORMAL)
[2021-08-28 10:25] LABS: BACTERIA,URINE None Seen /HPF (None Seen); CLARITY,URINE CLEAR (CLEAR); RBC,URINE 0-5 /HPF (0-5); SQUAMOUS EPITHELIAL CELL,UR NONE SEEN (<= Few); WBC,URINE 0-3 /HPF (0-5)
== END 2021-08-28 23:59 | disposition home or self-care (01) ==
LOC: LAB.WC 08:00
PROVIDERS: ATTEND Nurse Practitioner
DX: R35.0 Frequency of micturition (principal)
CPT/HCPCS: 81001; 87086

== ENCOUNTER 2023-03-09 07:00 | Outpatient (CLI) | payer OTHER ==
[2023-03-11 15:09] LABS: GIARDIA LAMBLIA AG EIA Negative (Negative)
== END 2023-03-09 23:59 | disposition home or self-care (01) ==
LOC: LAB.S 07:00
PROVIDERS: ATTEND Registered Nurse
DX: R10.9 Unspecified abdominal pain (principal); R19.7 Diarrhea, unspecified
CPT/HCPCS: 87045; 87046; 87177; 87209; 87329; 87427

== ENCOUNTER 2023-09-07 14:26 | Outpatient (CLI) | payer MEDICAID, OTHER | END 2023-09-07 23:59 | disposition EMS.NT | LOC: EMS 14:26 | DX: R55 Syncope and collapse (principal) ==

== ENCOUNTER 2023-10-06 14:07 | Outpatient (CLI) | payer MEDICAID ==
--- NOTE | 2023-10-07 08:28 | Mammography Report ---
BILATERAL FIRST EVER DIGITAL SCREENING MAMMOGRAM 3D/2D WITH EXAGGERATED CC: 10/06/2023 CLINICAL: Baseline exam. Routine screening. Family history of breast cancer. No prior exams were available for comparison. There are scattered areas of fibroglandular density in both breasts (category b / 25%-50% glandular t issue). No significant masses, calcifications, or other findings are seen in either breast. IMPRESSION: NEGATIVE There is no mammographic evidence of malignancy. A 1 year screening mammogram is recommended. Based on the Tyrer Cuzick model (a risk assessment model) the patient's lifetime risk is 7.2% and her 10 year risk is 0.9%. According to the ACR, ACS, and NCCN guidelines, an annual breast MRI exam lupis g with mammogram is recommended if the patient's lifetime risk is 20% or greater. This exam was interpreted at Station ID: [id number]. NOTE: For mammograms, a report in lay terms will be sent to the patient. Approximately 15% of breast malignancies will not be visualized mammographically. In the management of a palpable breast mass, a negative mammogram must not discourage biopsy of a clinically suspicious lesion. Electronically Signed By: Wayne [email or web address]/[email or web address]:10/06/2023 16:34:54 letter sent: No_Letter ACR BI-RADS Category 1: Negative [id number] PARENCHYMAL PATTERN: (A) - The breast(s) demonstrate(s) scattered fibroglandular densities. BI-RADS CATEGORY: (1) - 1 RECOMMENDATION: (ANNUAL) - Recommend routine annual screening mammography. [id number] 1 year screening LATERALITY: (B)
== END 2023-10-06 14:08 | disposition home or self-care (01) ==
LOC: DI.S 14:07
DX: Z12.31 Encounter for screening mammogram for malignant neoplasm of breast (principal); R92.323 Mammographic fibroglandular density, bilateral breasts; Z80.3 Family history of malignant neoplasm of breast

== ENCOUNTER 2023-10-08 07:09 | Outpatient (CLI) | payer MEDICAID | END 2023-10-08 07:10 | disposition home or self-care (01) | LOC: LAB.S 07:09 | PROVIDERS: ATTEND Physician Assistant | DX: E11.9 Type 2 diabetes mellitus without complications (principal) | CPT/HCPCS: 36415; 80053; 80061; 82043; 82570; 83036; 83721; 85025 ==

== ENCOUNTER 2023-10-13 07:31 | Outpatient (CLI) | payer MEDICAID ==
[2023-10-13 16:48] LABS: ALBUMIN 4.5 g/dL (3.2-5.5); ALBUMIN/GLOBULIN RATIO 1.8 (1.0-2.2); ALKALINE PHOSPHATASE 66 IU/L (42-121); ALT ALANINE AMINOTRANSFERASE 14 IU/L (10-60); AST ASPARTATE AMINOTRANSFERASE 19 IU/L (10-42); BILIRUBIN,TOTAL 1.3 mg/dL (0.2-1.0); BUN - BLOOD UREA NITROGEN 11 mg/dL (6-20); CALCIUM 9.6 mg/dL (8.5-10.3); CARBON DIOXIDE - CO2 23 mmol/L (21-32); CHLORIDE 108 mmol/L (101-111); CHOL/HDL RATIO 3.7 (<4.4); CHOLESTEROL 175 mg/dL; CREATININE 0.6 mg/dL (0.6-1.3); GFR - MDRD 111 (>89); GLUCOSE 93 mg/dL (74-104); HDL CHOLESTEROL 47 mg/dL; LDL CHOLESTEROL,CALCULATED 109 mg/dL; LDL/HDL RATIO 2.3 (<4.4); POTASSIUM 3.9 mmol/L (3.5-4.5); SODIUM 139 mmol/L (135-145); TRIGLYCERIDES 95 mg/dL; VLDL CHOLESTEROL 19 mg/dL
[2023-10-13 16:57] LABS: CREATININE,URINE 127.4 mg/dL; MICROALBUM/CREATININE RATIO,UR 5.5 ug/mg (<30.0); MICROALBUMIN,URINE 0.7 mg/dL
[2023-10-13 22:19] LABS: ESTIMATED AVERAGE GLUCOSE 103 mg/dL (70-100); HEMOGLOBIN A1c% 5.2 % (4.27-6.07)
== END 2023-10-13 07:32 | disposition home or self-care (01) ==
LOC: LAB.S 07:31
PROVIDERS: ATTEND Physician Assistant
DX: E11.9 Type 2 diabetes mellitus without complications (principal)
CPT/HCPCS: 36415; 80053; 80061; 82043; 82570; 83036; 83721; 85025

== ENCOUNTER 2023-10-20 07:57 | Outpatient (CLI) | payer MEDICAID ==
[2023-10-20 09:13] LABS: BASOPHILS # (AUTO) 0.1 10^3/uL (0.0-0.1); BASOPHILS % (AUTO) 0.6 %; EOSINOPHILS # (AUTO) 0.4 10^3/uL (0.0-0.7); EOSINOPHILS % (AUTO) 3.6 %; HGB - HEMOGLOBIN 14.9 g/dL (12.0-16.0); LYMPHOCYTES # (AUTO) 2.9 10^3/uL (1.5-3.5); MEAN CORPUSCULAR HEMOGLOBIN 29.3 pg (27.0-31.0); MEAN CORPUSCULAR HGB CONC 34.7 g/dL (32.0-36.0); MEAN CORPUSCULAR VOLUME 84.6 fL (81.0-99.0); MEAN PLATELET VOLUME 9.6 fL (7.9-10.8); MONOCYTES # (AUTO) 0.5 10^3/uL (0.0-1.0); MONOCYTES % (AUTO) 5.3 %; NEUTROPHILS # (AUTO) 6.1 10^3/uL (1.5-6.6); NEUTROPHILS % (AUTO) 60.9 %; PLT - PLATELET COUNT 291 10^3/uL (130-450); RED BLOOD COUNT 5.08 10^6/uL (4.20-5.40); RED CELL DISTRIBUTION WIDTH 12.2 % (12.0-15.0)
[2023-10-20 09:42] LABS: CRP HIGH SENSITIVITY 1.67 mg/L
[2023-10-20 09:59] LABS: THYROID STIMULATING HORMONE 0.87 uIU/mL (0.34-5.60)
== END 2023-10-20 07:58 | disposition home or self-care (01) ==
LOC: LAB.S 07:57 → LAB 07:58
PROVIDERS: ATTEND Naturopath
DX: Z00.00 Encounter for general adult medical examination without abnormal findings (principal); E03.9 Hypothyroidism, unspecified; R07.9 Chest pain, unspecified; E11.9 Type 2 diabetes mellitus without complications
CPT/HCPCS: 36415; 80053; 80061; 83721; 84439; 84443; 84481; 85025; 86141

== ENCOUNTER 2024-11-11 06:25 | Observation (INO) ==
--- NOTE | 2024-11-11 07:16 | ED Physician Documentation ---
History of Present Illness Stated complaint Stated Complaint: POST OP PX Chief complaint Chief Complaint: Abd Pain History obtained from History obtained from: Patient and Family History of Present Illness Pain level max: 9 Pain level now: 9 Additonal information Additional information: 39 year old female with RLQ abd pain. Patient is 3 days status post appendectomy. Had a small contained perforation at the time of surgery. States increasing pain since the surgery. She had been taking oxycodone but it made her vomit so she has not been using ibuprofen and Tylenol. Denies any possibility of . No fevers or chills. States the pain has become very sharp in the right lower quadrant. Has had some diarrhea as well, nonbloody. Review of Systems Constitutional Denies: Fever or Chills Gastrointestinal Reports: Nausea, Vomiting and Diarrhea; Denies: Adolph blood emesis, Coffee grounds in vomit or Constipation Meds/Allgy Home Medications Ambulatory Orders Medication Instructions Recorded Confirmed cetirizine 10 mg tablet 10 mg PO DAILY 11/11/1606/02 trazodone 300 mg tablet 300 mg PO HS sleep 04/04/24 11/11/24 rizatriptan 10 mg disintegrating 10 mg PO .QD PRN migr fany headache 05/18/24 11/11/24 tablet ([employer]-TECHNICAL SERVICES SPECIALIST) amoxicillin-potassium clavulanate 1 tab PO Q12H 3 days #6 tabs 11/08/24 11/11/24 1,000 mg-62.5 mg tablet,ext.rel 12hr (Augmentin XR) baclofen 20 mg tablet 20 mg PO HS PRN neck and rupert k pain 11/11/24 11/11/24 Allergies Allergies Allergy/AdvReac Type Severity Reaction Status Date / Time hydrocodone (From Vicodin) Allergy Intermediate Itching Verified 11/11/24 06:35 venlafaxine (From Effexor) Allergy Mild Full Body Verified 11/11/24 06:35 Rash oxycodone AdvReac vomiting Verified 11/11/24 06:35 PFSH Active Problems All Active Problems Intra-abdominal abscess post-procedure (Acute) Acute appendicitis (Acute) Appendicitis (Acute) Recurrent blepharitis (Acute) Internal hemorrhoid, bleeding (Acute) Hemorrhoids, external (Acute) Insomnia (Acute) Obesity (Acute) Asthma (Acute) Allergic rhinitis (Acute) Fibromyalgia (Acute) Depression (Acute) Neck pain, chronic (Acute) GERD (gastroesophageal reflux disease) (Acute) Anxiety (Acute) Migraine headache (Acute) Shoulder impingement syndrome (Acute) Chronic low back pain (Acute) Stress incontinence, female (Acute) Preventative health care (Acute) Hand pain, right (Acute) Contraception management (Acute) Insertion of implantable subdermal contraceptive (Acute) Urinary frequency (Acute) Encounter for Papanicolaou smear for cervical cancer screening (Acute) Encounter for gynecological examination (general) (routine) without abnormal findings (Acute) Irregular menstruation (Acute) Acute diarrhea (Acute) Abdominal cramps (Acute) Prediabetes (Acute) ERMA (obstructive sleep apnea) (Acute) Hx of opioid abuse (Acute) Encounter for immunization (Acute) Superficial postoperative wound infection (Acute) Postoperative examination (Acute) Obesity, Class III, BMI 40-49.9 (morbid obesity) (Acute) Myalgia (Acute) PFO (patent foramen ovale) (Acute) Medical History Medical History History of asthma Depression Migraine Anxiety Colitis Ischemia of digits of hand IV drug abuse GERD (gastroesophageal reflux disease) Sleep apnea treated with nocturnal BiPAP Surgical History Surgical History History of uvulopalatopharyngoplasty Hx of tonsillectomy S/P sinus surgery Family History Family History Father Depressed Asthma High blood pressure Mother Diabetes Aunt Breast cancer Maternal grandmother Alzheimers disease Social History Social History Smoking Status: Former smoker Number of Years Smoked: 5 How many cigarettes a day do you smoke? (20 cigarettes=1 Pk): 3 Second hand tobacco smoke exposure: No Do you dip or chew tobacco?: No Do you vape?: No Patient requests smoking cessation consult: No Initiate information on smoking cessation: No Living arrangement: At home Living Condition: With family Support Person: Yes Has a Durable Power of Master Chef for Health Care?: No DPOA on file?: No Has Health Care Directive?: No Health Care Directive on file?: No Level: Independent Do you feel safe in your home environment?: Yes History of physical, verbal, emotional, or financial abuse?: No ETOH Use: None Substance Use: cannabis (any form) POLST Patient has POLST: No Exam Exam Vital Signs: Vital Signs x48h Temp Pulse Resp BP Pulse Ox 11/11/24 08:27 75 18 119/85 96 11/11/24 06:28 36.9 C 84 18 150/101 H 99 Constitutional normal general appearance and no apparent distress HENMT oropharynx normal moist mucous membranes Eyes PERRL Neck/C-Spine visual inspection normal Respiratory breath sounds equal bilaterally, normal respiratory effort and clear to auscultation bilaterally Cardiovascular normal heart rate noted and regular rhythm noted Gastrointestinal abdomen normal to inspection, abdomen soft to palpation and nondistended Tender to palpation right lower quadrant. Incisions are clean, dry, intact. Genitourinary no CVA tenderness Extremities no edema Neurology speech normal Psychiatry mental status grossly normal and oriented x3 Skin skin color normal Results Vitals Vitals: Vital Signs - 24 hr 11/11/24 06:28 11/11/24 08:26 11/11/24 08:27 Temperature 36.9 C Pulse Rate 84 75 Respiratory Rate 18 18 Blood Pressure 150/101 H 119/85 O2 Saturation 99 96 O2 Source Room air Room air Pain Intensity 7 6 6 11/11/24 09:00 11/11/24 09:34 11/11/24 10:26 Temperature Pulse Rate Respiratory Rate Blood Pressure O2 Saturation O2 Source Pain Intensity 3 4 6 Oxygen O2 Source Room air Labs Labs: Laboratory Tests 11/11/24 08:37 WBC 10.8 RBC 4.43 Hgb 12.9 Hct 39.3 MCV 88.7 MCH 29.1 MCHC 32.8 RDW 12.4 Plt Count 307 MPV 9.8 Neut # (Auto) 8.0 H Lymph # (Auto) 1.7 [place] # (Auto) 0.6 Eos # (Auto) 0.4 Baso # (Auto) 0.1 Absolute Nucleated RBC 0.00 Nucleated RBC % 0.0 Sodium 137 Potassium 3.7 Chloride 107 Carbon Dioxide 25 Anion Gap 5.0 L BUN 12 Creatinine 0.6 Estimated GFR (MDRD) 110 Glucose 114 H Calcium 8.7 Total Bilirubin 0.8 AST 21 ALT 29 Alkaline Phosphatase 64 Total Protein 6.6 Albumin 3.5 Globulin 3.1 Albumin/Globulin Ratio 1.1 Lipase < 10 L Rads (name of study) CT abdomen pelvis: Relevant Findings:: Final report received PD Medical Decision Making ED course Complexity details: reviewed results, re-evaluated patient, considered differential and d/w patient ED course: Patient is a 39-year-old female status post appendectomy. She appears to have a 3.[address] scan. Started on IV Zosyn. Pain well-controlled. Given Dilaudid, Zofran, droperidol, IV fluids. Discussed with Dr. Owen, general surgery on-call who will admit the patient. This document was made in part using voice recognition software. While efforts are made to proofread this document, sound alike and grammatical errors may occur. Discharge Plan Discharge Patient Disposition: 66 [facility] DC/Xfer Condition: Stable Clinical Impression: Intra-abdominal abscess post-procedure Prescriptions: No Action rizatriptan [[employer]-TECHNICAL SERVICES SPECIALIST] 10 mg tablet,disintegrating 10 mg PO .QD PRN (Reason: migraine headache) Rx Instructions: at onset of migraine ; Limit use to <10 days per month to avoid medication- overuse headache. cetirizine 10 MG tablet 10 mg PO DAILY trazodone 300 mg tablet 300 mg PO HS amoxicillin-pot clavulanate [Augmentin XR] 1,000-62.5 mg tablet extended release 12 hr 1 tab PO Q12H 3 Days Qty: 6 0RF baclofen 20 mg tablet 20 mg PO HS PRN (Reason: neck and back pain) Print Language: Citizen Of [place]
[2024-11-11] MEDS: SODIUM CHLORIDE 0.9% 1,000 ML IV STA (08:25)
[2024-11-11] MEDS: ONDANSETRON ODT 4 MG TABLET TL STA (08:26)
[2024-11-11] MEDS: HYDROmorphone 1 MG/ML CARPUJECT IVP STA ×2 (08:26→10:26)
[2024-11-11 08:44] LABS: HCT - HEMATOCRIT 39.3 % (37.0-47.0); HGB - HEMOGLOBIN 12.9 g/dL (12.0-16.0); MEAN PLATELET VOLUME 9.8 fL (7.9-10.8); NRBC ABSOLUTE COUNT (AUTO) 0.00 x10^3/uL; NUCLEATED RED BLOOD CELLS AUTO 0.0 /100WBC; PLT - PLATELET COUNT 307 10^3/uL (130-450); RED CELL DISTRIBUTION WIDTH 12.4 % (12.0-15.0)
[2024-11-11 08:56] LABS: ALT ALANINE AMINOTRANSFERASE 29 IU/L (10-60); AST ASPARTATE AMINOTRANSFERASE 21 IU/L (10-42); BUN - BLOOD UREA NITROGEN 12 mg/dL (6-20); CARBON DIOXIDE - CO2 25 mmol/L (21-32); CREATININE 0.6 mg/dL (0.6-1.3); GFR - MDRD 110 (>89)
[2024-11-11] MEDS: HYDROmorphone 1 MG/ML CARPUJECT IM STA (09:34)
[2024-11-11] MEDS: ONDANSETRON 4 MG/2 ML VIAL IVP STA (09:35)
--- NOTE | 2024-11-11 09:54 | CT Report ---
PROCEDURE: CT Abdomen/Pelvis W INDICATIONS: RLQ pain, increased since surgery 3 days ago CONTRAST: Omni 300 100mL TECHNIQUE: After the administration of intravenous contrast, a CT scan of the abdomen and pelvis was performed. Images were recorded and evaluated at appropriate window settings. Reformats: coronal and sagittal. For radiation dose reduction, the following was used: automated exposure control, adjustment of mA and/or kV according to patient size. COMPARISON: CT June 03, 2009 FINDINGS: Image quality: Diagnostic. Lower chest: Bibasilar atelectasis otherwise unremarkable Liver: Hepatic steatosis. Gallbladder: No radiopaque stones or wall thickening. Biliary tree: No intrahepatic or extrahepatic dilation, accounting for age. Spleen: No splenomegaly. Pancreas: No pancreatic ductal dilation. Adrenals: No adrenal nodule. Kidneys and ureters: No hydronephrosis. No renal cystic lesion which requires follow up. No solid mass. Stomach, bowel and peritoneum: Postsurgical changes near the cecum with mild inflammatory changes. There is a small abscess adjacent to the surgical site measuring 3.6 x 3.4 x 2.4 cm. No free air. Lymph nodes: Mildly prominent lymph nodes most prominent near the cecum Vessels: No infrarenal aortic aneurysm. Patent portal vein. PELVIS Reproductive organs: Uterus not visualized. Bladder: No abnormal wall thickening. Pelvic lymph nodes: No pelvic adenopathy by size criteria. Bones: No aggressive osseous abnormality. Other: Tiny fat-containing umbilical hernia. IMPRESSION: Postsurgical changes of the appendectomy with small 3.6 abscess. Reviewed by: Que Frausto MD on 11/11/2024 8:51 AM ART Approved by: Que Frausto MD on 11/11/2024 8:51 AM ART Station ID: [id number]
[2024-11-11] MEDS: PIPERACILLIN/TAZOBACTAM 3.375 GM in SODIUM CHLORIDE 0.9% MINIBAG 100 ML IV STA (10:19)
--- NOTE | 2024-11-11 10:53 | HISTORY & PHYSICAL EXAMINATION ---
Chief Complaint Chief Complaint Chief Complaint: Abdominal pain History of Present Illness Admitted From Admitted From:: ED History Obtained From History obtained from: Patient Exam Limitations: None History of Present Illness HPI Comment/Other: Rut is a 39 year old female who underwent laparoscopic appenedctomy Nov 08, 2024 for ruptured appendicitis. She was discharged to home and immediately noticed RLQ discomfort that has increased in severity. She has also experienced nausea. She returned to the ED this morning and was found to have a 3.6 cm abscess in the RLQ adjacent to the cecum. Because of her need for IV antibiotics and pain control, she will be admitted to the surgical service for continued management. 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) amoxicillin-potassium clavulanate 1 tab PO Q12H 3 days #6 tabs 11/08/24 11/11/24 1,000 mg-62.5 mg tablet,ext.rel 12hr (Augmentin XR) baclofen 20 mg tablet 20 mg PO HS PRN neck and rupert k pain 11/11/24 11/11/24 Allergies Allergies Allergy/AdvReac Type Severity Reaction Status Date / Time hydrocodone (From Vicodin) Allergy Intermediate Itching Verified 11/11/24 06:35 venlafaxine (From Effexor) Allergy Mild Full Body Verified 11/11/24 06:35 Rash oxycodone AdvReac vomiting Verified 11/11/24 06:35 PFSH Active Problems All Active Problems Intra-abdominal abscess post-procedure (Acute) Acute appendicitis (Acute) Appendicitis (Acute) Recurrent blepharitis (Acute) Internal hemorrhoid, bleeding (Acute) Hemorrhoids, external (Acute) Insomnia (Acute) Obesity (Acute) Asthma (Acute) Allergic rhinitis (Acute) Fibromyalgia (Acute) Depression (Acute) Neck pain, chronic (Acute) GERD (gastroesophageal reflux disease) (Acute) Anxiety (Acute) Migraine headache (Acute) Shoulder impingement syndrome (Acute) Chronic low back pain (Acute) Stress incontinence, female (Acute) Preventative health care (Acute) Hand pain, right (Acute) Contraception management (Acute) Insertion of implantable subdermal contraceptive (Acute) Urinary frequency (Acute) Encounter for Papanicolaou smear for cervical cancer screening (Acute) Encounter for gynecological examination (general) (routine) without abnormal findings (Acute) Irregular menstruation (Acute) Acute diarrhea (Acute) Abdominal cramps (Acute) Prediabetes (Acute) ERMA (obstructive sleep apnea) (Acute) Hx of opioid abuse (Acute) Encounter for immunization (Acute) Superficial postoperative wound infection (Acute) Postoperative examination (Acute) Obesity, Class III, BMI 40-49.9 (morbid obesity) (Acute) Myalgia (Acute) PFO (patent foramen ovale) (Acute) Medical History Medical History History of asthma Depression Migraine Anxiety Colitis Ischemia of digits of hand IV drug abuse GERD (gastroesophageal reflux disease) Sleep apnea treated with nocturnal BiPAP Surgical History Surgical History History of uvulopalatopharyngoplasty Hx of tonsillectomy S/P sinus surgery Family History Family History Father Depressed Asthma High blood pressure Mother Diabetes Aunt Breast cancer Maternal grandmother Alzheimers disease Social History Social History Smoking Status: Former smoker Number of Years Smoked: 5 How many cigarettes a day do you smoke? (20 cigarettes=1 Pk): 3 Second hand tobacco smoke exposure: No Do you dip or chew tobacco?: No Do you vape?: No Patient requests smoking cessation consult: No Initiate information on smoking cessation: No Living arrangement: At home Living Condition: With family Support Person: Yes Has a Durable Power of [place] for Health Care?: No DPOA on file?: No Has Health Care Directive?: No Health Care Directive on file?: No Level: Independent Do you feel safe in your home environment?: Yes History of physical, verbal, emotional, or financial abuse?: No ETOH Use: None Substance Use: cannabis (any form) POLST Patient has POLST: No Review of Systems Status of ROS: 10 or more systems reviewed and unremarkable except as noted in history and below Constitutional Reports: Malaise Gastrointestinal Reports: Abdominal pain Prior Level of Functionality: Independent Exam Exam Vital Signs: Vital Signs x48h Temp Pulse Resp BP Pulse Ox 11/11/24 08:27 75 18 119/85 96 11/11/24 06:28 36.9 C 84 18 150/101 H 99 Constitutional normal general appearance and no apparent distress BMI 44 HENMT hearing grossly normal bilaterally and oral mucous membranes normal Eyes PERRL, EOMs intact bilaterally, conjunctivae normal and no scleral icterus Neck/C-Spine visual inspection normal Lymph no lymphadenopathy noted Respiratory breath sounds equal bilaterally, normal respiratory effort and clear to auscultation bilaterally Cardiovascular normal heart rate noted, regular rhythm noted and no murmur Gastrointestinal abdomen normal to inspection and abdomen soft to palpation Tenderness to deep palpation RLQ; Laparoscopic port sites clean and dry Extremities normal to inspection and full ROM Neurology no focal motor deficit noted Psychiatry mental status grossly normal, oriented x3, thought process normal, cooperative and affect normal Skin skin color normal, no rash and no lesions Conclusion/Plan Problem List (1) Intra-abdominal abscess post-procedure: Plan: 1) Admit for IV antibiotics and pain control 2) If abscess does not resolve or enlarges, IR drainage may be possible 3) Full liquid diet Asif Owen MD, [facility] General Surgery Service Lab Results 11/11/24 08:37 11/11/24 08:37 Diagnostic Imaging Results Diagnostic Imaging Results Comments: CT scan abd/pelvis - 3.6 cm abscess in RLQ adjacent to cecum
[2024-11-11] MEDS: DROPERIDOL 5 MG/2 ML VIAL IVP STA (11:25)
[2024-11-11] MEDS ORDERED: HYDROmorphone 1 MG/ML CARPUJECT IVP PRN (11:42)
[2024-11-11] MEDS ORDERED: KETOROLAC 30 MG/ML VIAL IVP PRN (11:42)
[2024-11-11] MEDS: IBUPROFEN 600 MG TABLET PO SCH (12:17)
[2024-11-11] MEDS: PIPERACILLIN/TAZOBACTAM 3.375 GM in SODIUM CHLORIDE 0.9% MINIBAG 100 ML IV SCH (12:18)
[2024-11-11] MEDS: ACETAMINOPHEN 325 MG TABLET PO SCH (13:13)
[2024-11-11] MEDS: HYDROmorphone 0.5 MG/0.5 ML SYRINGE IVP PRN (15:26)
[2024-11-11] MEDS: LACTATED RINGERS 1,000 ML IV SCH (15:27)
[2024-11-11] MEDS: SODIUM CHLORIDE FLUSH 0.9% 10 ML SYRINGE IVP SCH (15:44)
[2024-11-11] MEDS: ONDANSETRON 4 MG/2 ML VIAL IVP PRN (16:28)
[2024-11-11 17:29] LABS: GLUCOSE, URINE (UA) NEGATIVE (NEGATIVE); HCG UR QUAL NEGATIVE; KETONES,URINE (UA) NEGATIVE (NEGATIVE); OCCULT BLOOD,URINE NEGATIVE (NEGATIVE)
[2024-11-11] MEDS: METOCLOPRAMIDE 10 MG/2 ML VIAL IVP PRN (17:33)
[2024-11-11] MEDS: LORazepam 2 MG/ML VIAL IVP PRN (19:55)
[2024-11-11] MEDS: PROCHLORPERAZINE 10 MG/2 ML VIAL IVP PRN (19:55)
[2024-11-11] MEDS: BACLOFEN 10 MG TABLET PO PRN (20:41)
[2024-11-11] MEDS: CETIRIZINE 10 MG TABLET PO SCH ×2 (20:42→23:02)
[2024-11-12] MEDS: KETOROLAC 15 MG/ML VIAL IVP SCH (00:08)
[2024-11-12] MEDS: PIPERACILLIN/TAZOBACTAM 3.375 GM in SODIUM CHLORIDE 0.9% MINIBAG 100 ML IV SCH (03:15)
[2024-11-12] MEDS: SODIUM CHLORIDE FLUSH 0.9% 10 ML SYRINGE IVP PRN (03:15)
[2024-11-12] MEDS: ACETAMINOPHEN 325 MG TABLET PO SCH (03:16)
[2024-11-12 05:51] LABS: HCT - HEMATOCRIT 41.7 % (37.0-47.0); HGB - HEMOGLOBIN 13.0 g/dL (12.0-16.0); MEAN PLATELET VOLUME 10.2 fL (7.9-10.8); NRBC ABSOLUTE COUNT (AUTO) 0.00 x10^3/uL; NUCLEATED RED BLOOD CELLS AUTO 0.0 /100WBC; PLT - PLATELET COUNT 292 10^3/uL (130-450); RED CELL DISTRIBUTION WIDTH 12.4 % (12.0-15.0)
[2024-11-12 06:10] LABS: BUN - BLOOD UREA NITROGEN 10.0 mg/dL (6-20); CARBON DIOXIDE - CO2 23.0 mmol/L (21-32); CREATININE 0.7 mg/dL (0.6-1.3); GFR - MDRD 92.0 (>89)
--- NOTE | 2024-11-12 07:03 | PROVIDER PROGRESS NOTE ---
Progress Note Progress Note Progress Note: General Surgery Progress Note Hospital Day # 2 - Post-op intra-abdominal abscess following 11/08/2024 laparoscopic appendectomy for ruptured appendicitis Code Status: Full ASSESSMENT: 1) Improvement in abdominal pain 2) Diarrhea since last Wednesday - she has history of C Diff 3) Dry heaves have resolved PLAN: 1) Full liquid diet 2) IV to saline lock 3) C diff titer 4) Check labs in am. If C diff negative and she continues clinical improvement, will consider discharge to home on oral antibiotics with follow-up in the Surgery Clinic in 7-10 days. <><><><><> PERTINENT INTERVAL ISSUES: Dry heaves early in evening that have stopped. S: Feels better. Concerned about diarrhea since last Wednesday. RLQ discomfort has improved. OBJECTIVE: I/O: 3158/1040 VS: BP 120/79; P 84; RR 16; T 37.1 EXAMINATION: MENTAL STATUS: AAO; Comfortable EYES: Pupils equal, round and reactive to light, sclera anicteric, EARS, NOSE, MOUTH, THROAT: Normal hearing, Oral mucous membranes moist and without lesions; NECK: No crepitus, lymphadenopathy, or thyromegaly LUNGS: Clear to auscultation without wheezing; No use of accessory muscles to breathe CARDIOVASCULAR: Heart-NSR without murmurs; ABD: Soft, non-tender, + BS EXTREMITIES: No clubbing, cyanosis, infections SKIN: Anicteric; No rashes, lesions, ulcerations LABS: None ordered for today CULTURES: N/A IMAGING: None today ANTIMICROBIALS: Zosyn PAIN CONTROL: Dilaudid IV prn, Tramadol, Ketorolac IV, Acetaminophen VTEP: Chemical: Enoxaparin, 40mg, SQ, QD Mechanical: SCD Asif Owen MD, FACS General Surgery Service
[2024-11-12] MEDS ORDERED: CETIRIZINE 10 MG TABLET PO SCH (09:00)
[2024-11-12] MEDS: ENOXAPARIN 40 MG/0.4 ML SYRINGE SUBQ SCH (09:15)
[2024-11-13 04:33] LABS: HCT - HEMATOCRIT 35.7 % (37.0-47.0); HGB - HEMOGLOBIN 11.9 g/dL (12.0-16.0); MEAN PLATELET VOLUME 9.5 fL (7.9-10.8); NRBC ABSOLUTE COUNT (AUTO) 0.00 x10^3/uL; NUCLEATED RED BLOOD CELLS AUTO 0.0 /100WBC; PLT - PLATELET COUNT 302 10^3/uL (130-450); RED CELL DISTRIBUTION WIDTH 12.2 % (12.0-15.0)
[2024-11-13] MEDS: SODIUM CHLORIDE FLUSH 0.9% 10 ML SYRINGE IVP PRN (04:33)
[2024-11-13 04:56] LABS: BUN - BLOOD UREA NITROGEN 12.0 mg/dL (6-20); CARBON DIOXIDE - CO2 27.0 mmol/L (21-32); CREATININE 0.8 mg/dL (0.6-1.3); GFR - MDRD 79.0 (>89)
--- NOTE | 2024-11-13 08:30 | PROVIDER PROGRESS NOTE ---
Progress Note Progress Note Progress Note: General Surgery Progress Note S: Patient feels much better; Tolerating full liquid diet. Minimal if any RLQ discomfort. Passing loose stool. Ambulatory. No narcotic use or need. O: VSS, afeb; AAO; Comfortable; Abdomen is soft, not distended, not tender in any quadrant Labs: WBC 8.3; H&H 35.7/11.9 C Diff negative A: Post-op RLQ intra-abdominal abscess s/p laparoscopic appendectomy 5 - clinically improved P: Discharge to home on oral Augmentin for the next 7 days; Advance diet as tolerated; Surgery clinic (Dr. Walton) in 7-10 days. Asif Owen MD, FACS General Surgery Service
[2024-11-13 08:59] VITALS: O2SAT 94
[2024-11-13 10:53] VITALS: BP 123/75; TEMP 98.8
--- OUTSIDE RECORDS SUMMARY | 2024-11-14 19:01 | EXTERNAL MEDICAL SUMMARY RPT | Continuity of Care Document ---
Author Organization [facility] Address [address] [place] [id number] Phone Problems date description facility 2024-10-11 09:49 [facility], [facility]24-11-08 11:39 [facility] 2024-11-08 12:16 Acute appendicitis w ith localized peritonitis, without perforation or gangrene [facility] 2024-11-08 12:16 [facility]is [facility] 2024-11-08 14:10 Acute appendicitis w ith localized peritonitis, without perforation or gangrene [facility] 2024-11-08 14:10 [facility] 2024-11-08 15:49 Acute appendicitis w ith localized peritonitis, without perforation or gangrene [facility] 2024-11-08 15:49 [facility] 2024-11-08 16:05 Acute appendicitis w ith localized peritonitis, without perforation or gangrene [facility] 2024-11-08 16:05 [facility] 2024-11-08 16:49 Acute appendicitis w ith localized peritonitis, without perforation or gangrene [facility] 2024-11-08 16:49 [facility]is [facility] 2024-11-11 11:08 Peritoneal abscess [facility] 2024-11-11 11:08 Infection following a procedure, organ and space surgical site, initial encounter [facility] 2024-11-11 12:04 [facility]itoneal [facility] 2024-11-11 12:04 Infection following a procedure, organ and space surgical site, initial encounter [facility] 2024-11-13 08:34 Peritoneal abscess [facility] 2024-11-13 08:34 Infection following a procedure, organ and space surgical site, initial encounter [facility] 2024-11-13 10:19 Peritoneal abscess [facility] 2024-11-13 10:19 Infection following a procedure, organ and space surgical site, initial encounter [facility] 2024-11-13 11:02 Peritoneal abscess [facility] 2024-11-13 11:02 Infection following a procedure, organ and space surgical site, initial encounter [facility] 2024-11-14 08:27 Other acute postprocedural pain [facility] 2024-11-14 08:27 Peritoneal abscess [facility] 2024-11-14 08:27 [facility], [facility] 2024-[facility]-14 08:27 Infection following a procedure, organ and space surgical site, initial encounter [facility] Results/Labs test date facility value unit notes Result panel 1 NUCLEATED RED BLOOD CELLS AUTO 2024-11-08 07:53 [facility] 0.0 /100wbc (missing) NRBC ABSOLUTE COUNT (AUTO) 2024-11-08 07:53 [facility] 0.00 x10 3/ul (missing) BASOPHILS # (AUTO) 2024-11-08 07:53 [facility] 0.1 10 3/ul (missing) EOSINOPHILS # (AUTO) 2024-11-08 07:53 [facility] 0.3 10 3/ul (missing) CREATININE 2024-11-08 07:53 [facility] 0.8 mg/dl As of August 2022 testing method has changed, this may include reference ranges. MONOCYTES # (AUTO) 2024-11-08 07:53 [facility] 0.9 10 3/ul (missing) ALBUMIN/GLOBULIN RATIO 2024-11-08 07:53 [facility] 1.3 (missing) (missing) BILIRUBIN,TOTAL 2024-11-08 07:53 [facility] 1.9 mg/dl As of August 2022 testing method has changed, this may include reference ranges. LIPASE 2024-11-08 07:53 [facility] 10 u/l As of August 2022 testing method has changed, this may include reference ranges. NEUTROPHILS # (AUTO) 2024-11-08 07:53 [facility] 10.3 10 3/ul (missing) GLUCOSE 2024-11-08 07:53 [facility] 105 mg/dl As of August 2022 testing method has changed, this may include reference ranges. CHLORIDE 2024-11-08 07:53 [facility] 106 mmol/l As of August 2022 testing method has changed, this may include reference ranges. BUN - BLOOD UREA NITROGEN 2024-11-08 07:53 [facility] 11 mg/dl As of August 2022 testing method has changed, this may include reference ranges. RED CELL DISTRIBUTION WIDTH 2024-11-08 07:53 [facility] 12.5 % (missing) SODIUM 2024-11-08 07:53 [facility] 136 mmol/l (missing) WHITE BLOOD COUNT 2024-11-08 07:53 [facility] 14.0 x10 3/ul (missing) HGB - HEMOGLOBIN 2024-11-08 07:53 [facility] 15.5 g/dl (missing) LYMPHOCYTES # (AUTO) 2024-11-08 07:53 [facility] 2.3 10 3/ul (missing) PLT - PLATELET COUNT 2024-11-08 07:53 [facility] 249 10 3/ul (missing) AST ASPARTATE AMINOTRANSFERASE 2024-11-08 07:53 [facility] 25 iu/l As of August 2022 testing method has changed, this may include reference ranges. CARBON DIOXIDE - CO2 2024-11-08 07:53 [facility] 25 mmol/l As of August 2022 testing method has changed, this may include reference ranges. MEAN CORPUSCULAR HEMOGLOBIN 2024-11-08 07:53 [facility] 29.9 pg (missing) GLOBULIN 2024-11-08 07:53 [facility] 3.3 g/dl (missing) MEAN CORPUSCULAR HGB CONC 2024-11-08 07:53 [facility] 33.9 g/dl (missing) POTASSIUM 2024-11-08 07:53 [facility] 4.0 mmol/l As of August 2022 testing method has changed, this may include reference ranges. ALBUMIN 2024-11-08 07:53 [facility] 4.3 g/dl As of August 2022 testing method has changed, this may include reference ranges. ALT ALANINE AMINOTRANSFERASE 2024-11-08 07:53 [facility] 42 iu/l As of August 2022 testing method has changed, this may include reference ranges. HCT - HEMATOCRIT 2024-11-08 07:53 [facility] 45.7 % (missing) ANION GAP 2024-11-08 07:53 [facility] 5.0 (missing) (missing) RED BLOOD COUNT 2024-11-08 07:53 [facility] 5.18 10 6/ul (missing) TOTAL PROTEIN 2024-11-08 07:53 [facility] 7.6 g/dl As of August 2022 testing method has changed, this may include reference ranges. ALKALINE PHOSPHATASE 2024-11-08 07:53 [facility] 75 iu/l As of August 2022 testing method has changed, this may include reference ranges. GFR - MDRD 2024-11-08 07:53 [facility] 79 (missing) The IDMS-traceable MDRD Study Equation has been validated extensively in and populations between the ages of 18 and 70 with impaired kidney function (eGFR < 60 mL/min/1.73m2) and has shown good performance for patients with all common causes of kidney disease. Although this equation has not been validated for patients older than 70, an MDRD-derived eGFR may still be a useful tool for providers caring for patients older than 70. References: http://www.nkdep. nih.gov/lab-evalu ation/gfr/creatin ine-stand ardization, last updated April 2011. MEAN CORPUSCULAR VOLUME 2024-11-08 07:53 [facility] 88.2 fl (missing) CALCIUM 2024-11-08 07:53 [facility] 9.6 mg/dl As of August 2022 testing method has changed, this may include reference ranges. MEAN PLATELET VOLUME 2024-11-08 07:53 [facility] 9.8 fl (missing) Result panel 2 LIPASE 2024-11-11 08:37 [facility] < 10 u/l As of August 2022 testing method has changed, this may include reference ranges. NUCLEATED RED BLOOD CELLS AUTO 2024-11-11 08:37 [facility] 0.0 /100wbc (missing) NRBC ABSOLUTE COUNT (AUTO) 2024-11-11 08:37 [facility] 0.00 x10 3/ul (missing) BASOPHILS # (AUTO) 2024-11-11 08:37 [facility] 0.1 10 3/ul (missing) EOSINOPHILS # (AUTO) 2024-11-11 08:37 [facility] 0.4 10 3/ul (missing) MONOCYTES # (AUTO) 2024-11-11 08:37 [facility] 0.6 10 3/ul (missing) CREATININE 2024-11-11 08:37 [facility] 0.6 mg/dl As of August 2022 testing method has changed, this may include reference ranges. BILIRUBIN,TOTAL 2024-11-11 08:37 [facility] 0.8 mg /dl As of August 2022 testing method has changed, this may include reference ranges. ALBUMIN/GLOBULIN RATIO 2024-11-11 08:37 [facility] 1.1 (missing) (missing) LYMPHOCYTES # (AUTO) 2024-11-11 08:37 [facility] 1.7 10 3/ul (missing) WHITE BLOOD COUNT 2024-11-11 08:37 [email or web address] 10.8 x10 3/ul (missing) CHLORIDE 2024-11-11 08:37 [email or web address] 107 mmol/l As of August 2022 testing method has changed, this may include reference ranges. GFR - MDRD 2024-11-11 08:37 [facility] 110 (missin g) The IDMS-traceable MDRD Study Equation has been validated extensively in and populations between the ages of 18 and 70 with impaired kidney function (eGFR < 60 mL/min/1.73m2) and has shown good performance for patients with all common causes of kidney disease. Although this equation has not been validated for patients older than 70, an MDRD-derived eGFR may still be a useful tool for providers caring for patients older than 70. References: http://www.nkdep. nih.gov/lab-evalu ation/gfr/creatin ine-stand ardization, last updated April 2011. GLUCOSE 2024-11-11 08:37 [facility] 114 mg/dl As of August 2022 testing method has changed, this may include reference ranges. BUN - BLOOD UREA NITROGEN 2024-11-11 08:37 [facility] 12 mg/dl As of Aug testing method has changed, this may include reference ranges. RED CELL DISTRIBUTION WIDTH 2024-11-11 08:37 [facility] 12.4 % (missing) HGB - HEMOGLOBIN 2024-11-11 08:37 [facility] 12.9 g /dl (missing) SODIUM 2024-11-11 08:37 [facility] 137 mmol/l (missing) AST ASPARTATE AMINOTRANSFERASE 2024-11-11 08:37 [facility] 21 iu/l As of August 2022 testing method has changed, this may include reference ranges. CARBON DIOXIDE - CO2 2024-11-11 08:37 [facility] 25 mmol/l As of August 2022 testing method has changed, this may include reference ranges. ALT ALANINE AMINOTRANSFERASE 2024-11-11 08:37 [facility] 29 iu/l As of August 2022 testing method has changed, this may include reference ranges. MEAN CORPUSCULAR HEMOGLOBIN 2024-11-11 08:37 [facility] 29.1 pg (missing) GLOBULIN 2024-11-11 08:37 [facility] 3.1 g/dl (missing) ALBUMIN 2024-11-11 08:37 [facility] 3.5 g/dl As of August 2022 testing method has changed, this may include reference ranges. POTASSIUM 2024-11-11 08:37 [facility] 3.7 mmol/l As of August 2022 testing method has changed, this may include reference ranges. PLT - PLATELET COUNT 2024-11-11 08:37 [facility] 307 10 3/ul (missing) MEAN CORPUSCULAR HGB CONC 2024-11-11 08:37 [facility] 32.8 g/dl (missing) HCT - HEMATOCRIT 2024-11-11 08:37 [facility] 39.3 % (missing) RED BLOOD COUNT 2024-11-11 08:37 [facility] 4.43 10 6/ul (missing) ANION GAP 2024-11-11 08:37 [facility] 5.0 (missing ) (missing) TOTAL PROTEIN 2024-11-11 08:37 [facility] 6.6 g/dl As of August 2022 testing method has changed, this may include reference ranges. ALKALINE PHOSPHATASE 2024-11-11 08:37 [facility] 64 iu/l As of August 2022 testing method has changed, this may include reference ranges. NEUTROPHILS # (AUTO) 2024-11-11 08:37 [facility] 8.0 10 3/ul (missing) CALCIUM 2024-11-11 08:37 [facility] 8.7 mg/dl As of August 2022 testing method has changed, this may include reference ranges. MEAN CORPUSCULAR VOLUME 2024-11-11 08:37 [facility] 88.7 fl (missing) MEAN PLATELET VOLUME 2024-11-11 08:37 [facility] 9.8 fl (missing) Result panel 3 UROBILINOGEN,URINE 2024-11-11 16:40 [facility] 0.2 (NORMAL) e.u./dl (missing) SPECIFIC GRAVITY,URINE 2024-11-11 16:40 [facility] 1.010 (missing) (missing) PH,URINE 2024-11-11 16:40 [facility] 7.0 ph (missing) CLARITY,URINE 2024-11-11 16:40 [facility] CLEAR (missing) (missing) LEUKOCYTE ESTERASE, URINE 2024-11-11 16:40 [facility] NEGATIVE (missing) (missing) NITRITE,URINE 2024-11-11 16:40 [facility] NEGATIVE (missing) (missing) OCCULT BLOOD,URINE 2024-11-11 16:40 [facility] NEGATIVE (missing) (missing) BILIRUBIN,URINE 2024-11-11 16:40 [facility] NEGATIVE (missing) Bilirubin can be influenced by color interference. Please correlate positive results with clinical presentation HCG UR QUAL 2024-11-11 16:40 [facility] NEGATIVE (missing) INTERPRETIVE INFORMATION Urine hCG: Non- females: Negative females: Positive In some cases the level of hCG may be below the sensitivity of the test. Additionally, a very dilute urine specimen, may not contain site safety representative levels of hCG. If is still suspected, follow up testing on a first morning urine specimen or serum hCG testing is recommended. GLUCOSE, URINE (UA) 2024-11-11 16:40 [facility] NEGATIVE mg/dl (missing) KETONES,URINE (UA) 2024-11-11 16:40 [facility] NEGATIVE mg/dl (missing) PROTEIN,URINE 2024-11-11 16:40 [facility] NEGATIVE mg/dl (missing) UR CULTURE IF IND 2024-11-11 16:40 [facility] NOT INDICATED (missing) (missing) URINE MICROSCOPIC INDICATED? 2024-11-11 16:40 [facility] NOT INDICATED (missing) (missing) COLOR,URINE 2024-11-11 16:40 [facility] YELLOW (missing) URINE RANDOM Result panel 4 NUCLEATED RED BLOOD CELLS AUTO 2024-11-12 05:22 [facility] 0.0 /100wbc (missing) NRBC ABSOLUTE COUNT (AUTO) 2024-11-12 05:22 [facility] 0.00 x10 3/ul (missing) BASOPHILS # (AUTO) 2024-11-12 05:22 [email or web address] 0.1 10 3/ul (missing) EOSINOPHILS # (AUTO) 2024-11-12 05:22 [email or web address] 0.4 10 3/ul (missing) MONOCYTES # (AUTO) 2024-11-12 05:22 [email or web address] 0.5 10 3/ul (missing) CREATININE 2024-11-12 05:22 [facility] 0.7 mg/dl As of August 2022 testing method has changed, this may include reference ranges. BUN - BLOOD UREA NITROGEN 2024-11-12 05:22 [facility] 10 mg/dl As of Aug testing method has changed, this may include reference ranges. MEAN PLATELET VOLUME 2024-11-12 05:22 [facility] 10.2 fl (missing) CHLORIDE 2024-11-12 05:22 [facility] 107 mmol/l As of August 2022 testing method has changed, this may include reference ranges. GLUCOSE 2024-11-12: [facility] 108 mg/dl As of August 2022 testing method has changed, this may include reference ranges. RED CELL DISTRIBUTION WIDTH 2024-11-12 05:22 [facility] 12.4 % (mi ssing) HGB - HEMOGLOBIN 2024-11-12 05: [facility] 13.0 g /dl (missing) SODIUM 2024-11-12 05:22 [facility] 138 mmol/l (missing) LYMPHOCYTES # (AUTO) 2024-11-12 05:22 [facility] 2.4 10 3/ul (missing) CARBON DIOXIDE - CO2 2024-11-12 05:22 [facility] 23 mmol/l As of August 2022 testing method has changed, this may include reference ranges. MEAN CORPUSCULAR HEMOGLOBIN 2024-11-12 05:22 [facility] 29.1 pg (missing) PLT - PLATELET COUNT 2024-11-12 05:22 [facility] 292 10 3/ul (missing) POTASSIUM 2024-11-12 05:22 [facility] 3.6 mmol/l As of August 2022 testing method has changed, this may include reference ranges. MEAN CORPUSCULAR HGB CONC 2024-11-12 05:22 [facility] 31.2 g/dl (missing) RED BLOOD COUNT 2024-11-12 05: [facility] 4.46 10 6/ul (missing) HCT - HEMATOCRIT 2024-11-12 05: [facility] 41.7 % (missing) NEUTROPHILS # (AUTO) 2024-11-12 05:22 [facility] 5.3 10 3/ul (missing) ANION GAP 2024-11-12 05:22 [facility] 8.0 (missing ) (missing) CALCIUM 2024-11-12 05: [facility] 8.8 mg/dl As of August 2022 testing method has changed, this may include reference ranges. WHITE BLOOD COUNT 2024-11-12 05:22 [facility] 8.8 x10 3/ul (missing) GFR - MDRD 2024-11-12 05: [facility] 92 (missin g) The IDMS-traceable MDRD Study Equation has been validated extensively in and populations between the ages of 18 and 70 with impaired kidney function (eGFR < 60 mL/min/1.73m2) and has shown good performance for patients with all common causes of kidney disease. Although this equation has not been validated for patients older than 70, an MDRD-derived eGFR may still be a useful tool for providers caring for patients older than 70. References: http://www.nkdep.n ih.gov/lab-evaluat ion/gfr/creatinine -stand ardization, last updated April 2011. MEAN CORPUSCULAR VOLUME 2024-11-12 05:22 [facility] 93.5 fl (missing) Result panel 5 C DIFF PCR 2024-11-12 08:00 [facility] NEGATIVE (missin g) (missing) Result panel 6 NUCLEATED RED BLOOD CELLS AUTO 2024-11-13 04:15 [facility] 0.0 /100wbc (missing) NRBC ABSOLUTE COUNT (AUTO) 2024-11-13 04:15 [facility] 0.00 x10 3/ul (missing) BASOPHILS # (AUTO) 2024-11-13 04:15 [facility] 0.1 10 3/ul (missing) EOSINOPHILS # (AUTO) 2024-11-13 04:15 [email or web address] 0.5 10 3/ul (missing) MONOCYTES # (AUTO) 2024-11-13 04:15 [facility] 0.5 10 3/ul (missing) CREATININE 2024-11-13 04:15 [facility] 0.8 mg/dl As of August 2022 testing method has changed, this may include reference ranges. CHLORIDE 2024-11-13 04:15 [facility] 106 mmol/l As of August 2022 testing method has changed, this may include reference ranges. HGB - HEMOGLOBIN 2024-11-13 04:15 [facility] 11.9 g /dl (missing) BUN - BLOOD UREA NITROGEN 2024-11-13 04:15 [facility] 12 mg/dl As of Aug testing method has changed, this may include reference ranges. RED CELL DISTRIBUTION WIDTH 2024-11-13 04:15 [facility] 12.2 % (mi ssing) SODIUM 2024-11-13 04:15 [email or web address] 139 mmol/l (missing) LYMPHOCYTES # (AUTO) 2024-11-13 04:15 [email or web address] 2.4 10 3/ul (missing) CARBON DIOXIDE - CO2 2024-11-13 04:15 [facility] 27 mmol/l As of August 2022 testing method has changed, this may include reference ranges. MEAN CORPUSCULAR HEMOGLOBIN 2024-11-13 04:15 [facility] 29.7 pg (missing) POTASSIUM 2024-11-13 04:15 [facility] 3.7 mmol/l As of August 2022 testing method has changed, this may include reference ranges. PLT - PLATELET COUNT 2024-11-13 04:15 [facility] 302 10 3/ul (missing) MEAN CORPUSCULAR HGB CONC 2024-11-13 04:15 [facility] 33.3 g/dl (missing) HCT - HEMATOCRIT 2024-11-13 04:15 [facility] 35.7 % (missing) RED BLOOD COUNT 2024-11-13 04:15 [facility] 4.01 10 6/ul (missing) NEUTROPHILS # (AUTO) 2024-11-13 04:15 [facility] 4.7 10 3/ul (missing) ANION GAP 2024-11-13 04:15 [facility] 6.0 (missing ) (missing) GFR - MDRD 2024-11-13 04:15 [facility] 79 (missin g) The IDMS-traceable MDRD Study Equation has been validated extensively in and populations between the ages of 18 and 70 with impaired kidney function (eGFR < 60 mL/min/1.73m2) and has shown good performance for patients with all common causes of kidney disease. Although this equation has not been validated for patients older than 70, an MDRD-derived eGFR may still be a useful tool for providers caring for patients older than 70. References: http://www.nkdep.n ih.gov/lab-evaluat ion/gfr/creatinine -stand ardization, last updated April 2011. WHITE BLOOD COUNT 2024-11-13 04:15 [facility] 8.3 x10 3/ul (missing) CALCIUM 2024-11-13 04:15 [facility] 8.6 mg/dl As of August 2022 testing method has changed, this may include reference ranges. GLUCOSE 2024-11-13 04:15 [facility] 89 mg/dl As of August 2022 testing method has changed, this may include reference ranges. MEAN CORPUSCULAR VOLUME 2024-11-13 04:15 [facility] 89.0 fl (missing) MEAN PLATELET VOLUME 2024-11-13 04:15 [facility] 9.5 fl (missing) Social History date description facility
== END 2024-11-13 10:34 | disposition home or self-care (01) ==
LOC: MS3 06:25 → ED 06:25 → MS3 11:33
PROVIDERS: ADMIT Surgery; ATTEND Surgery